=== PATIENT | male | born 1975 | race Caucasian/White ===

== ENCOUNTER 2020-04-25 10:57 | Emergency (ER) | payer BC, SELFPAY ==
[2020-04-25 11:28] VITALS: BP 198/117; PULSE 126; RESP 16; TEMP 36.9; O2SAT 97
--- NOTE | 2020-04-25 14:31 | CT_ITS ---
EXAMINATION: CT ABDOMEN AND PELVIS WITH CONTRAST CLINICAL INFORMATION: Left lower and right lower quadrant pain COMPARISON: None TECHNIQUE: Multidetector volumetric images were obtained from the superior aspect of the liver through the pubic symphysis following administration 85 mL of Omnipaque 350 intravenous contrast. Sagittal and coronal reformatted images were obtained on the technologist's workstation. Oral contrast: No This CT examination was performed using dose optimization techniques as appropriate, variously including the following: *Automated exposure control *Adjustment of mA and/or kV according to patient size (this includes techniques or standardized protocols for targeted exams where dose is matched to indication/reason for exam; i.e. extremities or head) *Use of iterative reconstruction technique DLP: 567 mGy-cm FINDINGS: LUNG BASES: The visualized lung bases are unremarkable. LIVER, GALLBLADDER, AND BILIARY TREE: Hepatomegaly with changes of severe hepatic steatosis. No discrete lesion. The gallbladder is unremarkable with no evidence of radiopaque gallstones, gallbladder wall thickening, or obvious pericholecystic inflammatory changes. PANCREAS: The pancreatic head is enlarged with peripancreatic inflammatory changes suspicious for pancreatitis. No discrete lesion or pancreatic duct dilatation. No choledocholithiasis. No fluid collection. Stranding extends into the right lateral conal fascia and right paracolic gutter. SPLEEN: Unremarkable. ADRENAL GLANDS: Unremarkable. KIDNEYS AND URETERS: The kidneys are normal in size, shape, and attenuation. No hydronephrosis, hydroureter, or calculi seen. No perinephric stranding. Large left upper pole unilocular simple renal cortical cysts. BLADDER: Unremarkable. GASTROINTESTINAL TRACT: Diverticulosis without acute inflammatory changes. Small hiatus hernia. ABDOMINAL WALL: No significant hernia is appreciated. LYMPH NODES: Normal. VASCULAR: Unremarkable. PELVIC VISCERA: Unremarkable. OSSEOUS STRUCTURES: Unremarkable. CT/CT abdomen pelvis w con IMPRESSION: Changes of acute pancreatitis without complication as above. Hepatomegaly changes of severe hepatic steatosis. No fluid collection. No choledocholithiasis.
--- NOTE | 2020-04-25 14:33 | ED.ABDPAIN ---
HPI - Abdominal Pain General Chief Complaint: Abdominal Pain Stated Complaint: belly pain Time Seen by Provider: 04/25/20 14:26 Source: patient Mode of arrival: ambulatory History of Present Illness HPI narrative: 44-year-old male, smoker, with no other significant past medical history presenting to ED complaining of diffuse nonradiating abdominal pain beginning around 3:00 a.m. Admits symptoms improved and now worsened since ED arrival with associated nausea and 1 episode of emesis. Denies fever, chills, diarrhea/constipation, dysuria/hematuria, exposure to COVID-19 MD elicited complaint: abdominal pain Related Data Previous Rx's Medication Instructions Recorded cefuroxime axetil 500 mg PO BID 7 Days #14 tab 04/25/20 hydrocodone-acetaminophen [Meta] 1 tab PO Q6H PRN 3 Days #9 tab 04/25/20 Allergies Allergy/AdvReac Type Severity Reaction Status Date / Time No Known Allergies Allergy Verified 04/25/20 11:26 Review of Systems Review of Systems Constitutional: No Weight loss, No Fever, No Chills Cardiovascular: No Chest Pain, No SOB Respiratory: No Cough, No Sputum, No Dyspnea Gastrointestinal: + Nausea, + Vomiting, No Diarrhea, No Constipation, + Abdominal pain Genitourinary: No Dysuria, No Urinary Frequency, No Hematuria, No Flank Pain, No Hesitancy Musculoskeletal: No joint pain, No Myalgias, No Joint Swelling Skin: No Skin Lesions, No rash Yes all other systems are reviewed and are negative Physical Exam Vital Signs: Vital Signs: Last Vital Signs Temp 97.8 F 04/25/20 18:08 Pulse 109 H 04/25/20 18:08 Resp 20 04/25/20 18:08 BP 186/110 H 04/25/20 18:08 Pulse Ox 98 04/25/20 18:08 Body Mass Index 30.0 Const: General: cooperative and healthy appearing Orientation/consciousness: patient oriented x3 Limitations: no limitations HENMT: Head: Yes normal to inspection Ears: hearing grossly normal bilaterally General nose exam: Normal external nose present Face and sinus: Yes normal facial exam Eyes: General: appearance normal, both eyes and all related structures EOM: EOMs intact bilaterally Neck: Neck: Yes normal visual inspection and Yes no meningeal signs Resp: Effort & Inspection: normal respiratory effort Auscultation: clear to auscultation bilaterally, no rales, no rhonchi and no wheezes Cardio: Rate: regular rate Heart sounds: S1 normal heart sound present and S2 normal heart sound present GI: Inspection: Yes normal to inspection Palpation (GI): Soft to palpation, Tenderness to palpation present (GI) in the epigastrum, in the LLQ, in the RLQ and in the LUQ, no guarding and not rigid : General: Yes no CVA tenderness Back/Spine/Pelvis: Back: no CVA tenderness Skin: Rashes: no rashes Wounds: no wounds Neuro: General: patient oriented x3 and no meningeal signs Gait exam (Neuro): Normal gait present Extrem: General: Yes normal to inspection Course Course Course Narrative: 1700- WBC count 11.3, bilirubin's, AST/ALT, and alk-phos all elevated lipase 159 CT showing changes of acute pancreatitis without complication. Hepatomegaly changes of severe hepatic steatosis. No fluid collection. No choledocholithiasis 1840-upon further questioning patient does admit to daily EtOH use, admits to drinking at least 2 drinks daily. On exam nontoxic appearing, reports only mild pain at present, abdomen soft with mild epigastric ttp, no rebound or guarding. Gave patient option of admission vs DC home with antibiotics/pain control and close follow-up, with shared decision making patient would like to go home, he verbalized understanding worrisome signs and symptoms/return precautions & feels safe for discharge Lab abnormalities likely from EtOH abuse, and not sepsis. VS abnormalities due to anxiety/white coat syndrome, patient does not meet severe sepsis criteria UA nitrite positive> will initiate Ceftin to also cover pancreatitis, and due to patients QTc 2153--lactic negative at 1.7 MDM - Abdominal Pain MDM Narrative Medical decision making narrative: 44-year-old male, smoker, with no other significant past medical history presenting to ED complaining of diffuse nonradiating abdominal pain beginning around 3:00 a.m. On exam hypertensive/tachycardic, nervous, abdomen soft diffusely tender, no rebound or guarding, no CVAT. Concern for pancreatitis vs cholecystitis/liver disease vs diverticulitis or appendicitis. Lower concern for UTI/renal stone. Low concern for severe sepsis, vital sign abnormalities likely due to patient's anxiety/nerves Plan: Labs, UA, CTAP, IVF, symptomatic therapy/reassess Lab Data Result diagrams: 04/25/20 16:08 04/25/20 16:08 Labs: Lab Results 04/25/20 04/25/20 04/25/20 Range/Units 16:08 16:08 16:08 WBC 11.3 H (4.8-10.8) X10*3/uL RBC 4.28 L (4.60-5.80) X10*6/uL Hgb 14.6 (14.0-18.0) g/dl Hct 42.2 (42-52) % MCV 98.6 H (80-98) fL MCH 34.1 H (27.0-33.0) pg MCHC 34.6 (31.0-36.0) g/dl RDW 13.3 (11.0-16.0) % Plt Count 175 (160-400) X10*3/uL MPV 10.7 (9.4-12.4) fL Immature Gran % (Auto) 0.4 (0.0-0.4) % Neut % (Auto) 81.3 H (45-73) % Lymph % (Auto) 12.0 L (20-40) % [place] % (Auto) 5.8 (2-11) % Eos % (Auto) 0.3 (0-4) % Baso % (Auto) 0.2 (0-2) % Lymph # (Auto) 1.4 (1.2-4.9) X10*3/uL [place] # (Auto) 0.7 (0.1-1.2) X10*3/uL Eos # (Auto) 0.0 (0.0-0.4) X10*3/uL Baso # (Auto) 0.0 (0.0-0.2) X10*3/uL Abs Immat Gran (auto) 0.05 H (0.00-0.03) X10*3/uL Absolute Neuts (auto) 9.2 H (2.0-8.3) X10*3/uL Absolute Nucleated RBC 0.000 (0.0-0.012) X10*3/uL Nucleated RBC % (auto) 0.0 (0.0-0.2) /100WBC Hold Blue Top SEE NOTE Sodium 136 (135-145) mmol/L Potassium 3.9 (3.3-5.1) mmol/l Chloride 96 (96-108) mmol/L Carbon Dioxide 27 (22-29) mmol/L Anion Gap 17 (12-20) BUN 11 (9-16) mg/dL Creatinine 0.73 (0.5-1.4) mg/dL Estim Creat Clear Calc 125.9 Estimated GFR > 60 Random Glucose 136 H (60-115) mg/dL Lactic Acid (0.5-2.0) mmol/L Calcium 7.8 L (8.4-10.2) mg/dL Magnesium (1.6-2.6) mg/dL Total Bilirubin 2.5 H (0.0-1.0) mg/dL Direct Bilirubin 1.5 H (0.0-0.5) mg/dL AST 232 H (5-37) U/L ALT 154 H (0-40) U/L Alkaline Phosphatase 225 H (39-117) U/L Total Protein 6.2 L (6.5-8.0) g/dL Albumin 3.1 L (3.5-5.0) g/dL Lipase (8-78) U/L Urine Color Urine Appearance Urine pH (5.0-8.0) Ur Specific [place] (1.005-1.025) Urine Protein (NEG-TRACE) MG/DL Urine Glucose (UA) (NEG) MG/DL Urine Ketones (NEG) MG/DL Urine Blood (NEG) Urine Nitrite (NEG) Ur Leukocyte Esterase (NEG) Urine RBC (0) /HPF Urine WBC (0-4) /HPF Ur Squamous Epith Cells /LPF Urine Bacteria /LPF Urine Mucus /LPF 04/25/20 04/25/20 04/25/20 Range/Units 16:08 17:11 19:22 WBC (4.8-10.8) X10*3/uL RBC (4.60-5.80) X10*6/uL Hgb (14.0-18.0) g/dl Hct (42-52) % MCV (80-98) fL MCH (27.0-33.0) pg MCHC (31.0-36.0) g/dl RDW (11.0-16.0) % Plt Count (160-400) X10*3/uL MPV (9.4-12.4) fL Immature Gran % (Auto) (0.0-0.4) % Neut % (Auto) (45-73) % Lymph % (Auto) (20-40) % [place] % (Auto) (2-11) % Eos % (Auto) (0-4) % Baso % (Auto) (0-2) % Lymph # (Auto) (1.2-4.9) X10*3/uL [place] # (Auto) (0.1-1.2) X10*3/uL Eos # (Auto) (0.0-0.4) X10*3/uL Baso # (Auto) (0.0-0.2) X10*3/uL Abs Immat Gran (auto) (0.00-0.03) X10*3/uL Absolute Neuts (auto) (2.0-8.3) X10*3/uL Absolute Nucleated RBC (0.0-0.012) X10*3/uL Nucleated RBC % (auto) (0.0-0.2) /100WBC Hold Blue Top Sodium (135-145) mmol/L Potassium (3.3-5.1) mmol/l Chloride (96-108) mmol/L Carbon Dioxide (22-29) mmol/L Anion Gap (12-20) BUN (9-16) mg/dL Creatinine (0.5-1.4) mg/dL Estim Creat Clear Calc Estimated GFR Random Glucose (60-115) mg/dL Lactic Acid 1.7 (0.5-2.0) mmol/L Calcium (8.4-10.2) mg/dL Magnesium 1.6 (1.6-2.6) mg/dL Total Bilirubin (0.0-1.0) mg/dL Direct Bilirubin (0.0-0.5) mg/dL AST (5-37) U/L ALT (0-40) U/L Alkaline Phosphatase (39-117) U/L Total Protein (6.5-8.0) g/dL Albumin (3.5-5.0) g/dL Lipase 159 H (8-78) U/L Urine Color [place] Urine Appearance HAZY Urine pH 6.5 (5.0-8.0) Ur Specific [place] >= 1.030 H (1.005-1.025) Urine Protein 1+ H (NEG-TRACE) MG/DL Urine Glucose (UA) NEG (NEG) MG/DL Urine Ketones 5 (NEG) MG/DL Urine Blood NEG (NEG) Urine Nitrite POS H (NEG) Ur Leukocyte Esterase NEG (NEG) Urine RBC 1-4 (0) /HPF Urine WBC 1-4 (0-4) /HPF Ur Squamous Epith Cells 1+ /LPF Urine Bacteria 1+ /LPF Urine Mucus 3+ /LPF Discharge Plan Discharge Clinical Impression: Acute UTI Acute pancreatitis Qualifiers: Pancreatitis type: alcohol induced Acute pancreatitis complication: no infection or necrosis Qualified Code(s): K85.20 - Alcohol induced acute pancreatitis without necrosis or infection Patient Disposition: Home, Self-Care Instructions: Pancreatitis (ED) Additional Instructions: YOU HAVE ACUTE PANCREATITIS CEFTIN AN ANTIBIOTIC, TAKE PRESCRIBED YOU NEED TO STAY HYDRATED AT HOME, PRACTICE CLEAR LIQUID DIET FOR THE NEXT 3 DAYS IT IS CRUCIAL THAT YOUR STAYING HYDRATED TAKE TYLENOL MOTRIN FOR PAIN, IN ADDITION NORCO WAS AN OPIATE PAIN MEDICATION WHEN PAIN GETS TOO SEVERE, TAKE FOR THE NEXT 3 DAYS YOU TO FOLLOW-UP WITH THE GI DOCTOR IF HER SYMPTOMS PERSIST OR WORSEN, PAIN BECOMES UNBEARABLE, YOU ARE UNABLE TO EAT OR DRINK, YOURE SPIKING FEVERS RETURN TO THE ED IMMEDIATELY Prescriptions: New hydrocodone-acetaminophen [Meta] 5-325 mg tablet 1 tab PO Q6H PRN (Reason: pain) 3 Days Qty: 9 RF: 0 cefuroxime axetil 500 mg tablet 500 mg PO BID 7 Days Qty: 14 RF: 0 Referrals: Kim Gotti MD [Physician] - 3 days [facility] Past Medical History Attestation statement: The following information was validated with the patient. Medical History (Updated 04/25/20 @ 18:47 by JOSE ANTONIO Lai) No known health problems Social History Social History Alcohol intake: never Smoking Status: Unknown if ever smoked Use of substances other than those prescribed or required for medical reasons: No Advance Directives: No Advance Directives Information Provided: No
[2020-04-25 16:01] VITALS: BP 181/100; PULSE 112; RESP 16; TEMP 36.9; O2SAT 98
[2020-04-25] MEDS: Ketorolac Tromethamine 15 MG/ML VIAL IVPUSH (16:09)
[2020-04-25] MEDS: 0.9 % Sodium Chloride 1,000 ML 999 ML IVCONT ×2 (16:09→18:22)
[2020-04-25] MEDS: ondansetron HCL 4 MG/2 ML VIAL IVPUSH (16:10)
[2020-04-25 16:16] LABS: MANUAL DIFF FLAG NO
[2020-04-25 16:30] LABS: Basophils Percent Auto 0.2 % (0-2); Eosinophils Percent Auto 0.3 % (0-4); Hematocrit 42.2 % (42-52); Hemoglobin 14.6 g/dl (14.0-18.0); Imm Gran Abs Auto 0.05 X10*3/uL (0.00-0.03); Imm Gran Pct Auto 0.4 % (0.0-0.4); Lymphocytes Absolute Auto 1.4 X10*3/uL (1.2-4.9); Mean Corpuscular HGB Conc 34.6 g/dl (31.0-36.0); Mean Corpuscular Hemoglobin 34.1 pg (27.0-33.0); Mean Corpuscular Volume 98.6 fL (80-98); Mean Platelet Volume 10.7 fL (9.4-12.4); Monocytes Absolute Auto 0.7 X10*3/uL (0.1-1.2); Monocytes Percent Auto 5.8 % (2-11); Neutrophils Absolute Auto 9.2 X10*3/uL (2.0-8.3); Neutrophils Percent Auto 81.3 % (45-73); Platelet Count 175 X10*3/uL (160-400); Red Blood Count 4.28 X10*6/uL (4.60-5.80); Red Cell Distribution Width 13.3 % (11.0-16.0); White Blood Count 11.3 X10*3/uL (4.8-10.8)
[2020-04-25 16:44] LABS: Alanine Aminotransferase 154 U/L (0-40); Albumin Level 3.1 g/dL (3.5-5.0); Alkaline Phosphatase 225 U/L (39-117); Anion Gap 17 (12-20); Aspartate Amino Transferase 232 U/L (5-37); Bilirubin Direct 1.5 mg/dL (0.0-0.5); Bilirubin Total 2.5 mg/dL (0.0-1.0); Blood Urea Nitrogen 11 mg/dL (9-16); Calcium 7.8 mg/dL (8.4-10.2); Carbon Dioxide 27 mmol/L (22-29); Chloride 96 mmol/L (96-108); Creatinine Clr Calc Pharmacy 125.9; Estimated Glomerular Filt Rate > 60; Glucose Random 136 mg/dL (60-115); Lipase 159 U/L (8-78); Magnesium 1.6 mg/dL (1.6-2.6); Potassium 3.9 mmol/l (3.3-5.1); Sodium 136 mmol/L (135-145); Total Protein 6.2 g/dL (6.5-8.0)
[2020-04-25 17:29] LABS: Glucose Urine UA NEG (NEG); Leukocyte Esterase Urine NEG (NEG); Nitrite Urine POS (NEG); PH 6.5 (5.0-8.0); Specific Gravity - Urine >= 1.030 (1.005-1.025); Urine Blood NEG (NEG); Urine Ketones 5 MG/DL (NEG); Urine Protein 1+ MG/DL (NEG-TRACE)
[2020-04-25 17:33] LABS: Appearance Urine HAZY; Color Urine AMBER
[2020-04-25 17:37] LABS: Bacteria Urine 1+ /LPF; Mucus Urine 3+ /LPF; Squamous Epithelial Cell Urine 1+ /LPF
[2020-04-25] MEDS: iohexoL 350 MG/ML 100 ML INFUS..BTL IV (18:07)
[2020-04-25 18:08] VITALS: BP 186/110; PULSE 109; RESP 20; TEMP 36.6; O2SAT 98
--- NOTE | 2020-04-25 18:54 | ECG_ITS ---
Test Reason : ABD PAIN Blood Pressure : / mmHG Vent. Rate : 109 BPM Atrial Rate : 109 BPM P-R Int : 148 ms QRS Dur : 112 ms QT Int : 356 ms P-R-T Axes : 055 -02 072 degrees QTc Int : 479 ms Sinus tachycardia Otherwise normal ECG No previous ECGs available Referred By: Diana Guajardo Electronically Signed By:Clinton Fernandez
[2020-04-25 19:51] LABS: Lactic Acid 1.7 mmol/L (0.5-2.0)
== END 2020-04-25 20:13 | disposition home or self-care (01) ==
PROVIDERS: Physician Assistant; Emergency Provider Internal Medicine
DX: K85.20 Alcohol induced acute pancreatitis without necrosis or infection (principal); N39.0 Urinary tract infection, site not specified; Z79.899 Other long term (current) drug therapy
CPT/HCPCS: 36415; 74177; 80048; 80076; 81001; 83605; 83690; 83735; 85025; 87040; 87086; 93005; 96361; 96374; 96375; 99284; J1885; J2405; Q9967

== ENCOUNTER 2021-10-25 11:29 | Inpatient (IN) | payer BC, SELFPAY ==
--- NOTE | ~2021-10-25 | XR_ITS ---
EXAMINATION: XR CHEST CLINICAL INFORMATION: SOB COMPARISON: None TECHNIQUE: Frontal view of the chest was obtained. FINDINGS: The lungs are well-expanded with patchy haziness in right lower lobe suggestive of infiltrate or atelectasis. Rest of the lungs are well-expanded and clear. Heart size enlarged. Pulmonary vascularity is prominent without congestion. No gross bony abnormality seen. XR/XR chest 1V IMPRESSION: Suspect right lower lobe infiltrate or artifact. Rest of lungs are clear Moderate cardiomegaly.
--- NOTE | ~2021-10-25 | CT_ITS ---
EXAMINATION: CT ABDOMEN AND PELVIS WITHOUT CONTRAST CLINICAL INFORMATION: Severe abdominal distention. COMPARISON: CT abdomen and pelvis with contrast 04/25/2020 TECHNIQUE: Multidetector volumetric imaging was performed from the superior aspect of the liver through the pubic symphysis. No oral or intravenous contrast. Sagittal and coronal reformatted images were obtained on the technologist's workstation. Preliminary interpretation provided at time of exam during PACS downtime. This CT examination was performed using dose optimization techniques as appropriate, variously including the following: *Automated exposure control *Adjustment of mA and/or kV according to patient size (this includes techniques or standardized protocols for targeted exams where dose is matched to indication/reason for exam; i.e. extremities or head) *Use of iterative reconstruction technique DLP: 1136 mGy-cm FINDINGS: Motion: There is respiratory motion artifact greater in the upper abdomen with inherent limitations. LUNG BASES: The visualized lung bases are unremarkable. LIVER, GALLBLADDER, AND BILIARY TREE: Liver is within limits of normal size and smooth in contour and homogeneous. No visible hepatic parenchymal lesion. No intrahepatic biliary ductal dilatation. Gallbladder is normal in size. No visible calculi. No persistent cholecystic fluid or focal inflammatory changes. No visible common duct calculus. PANCREAS: Unremarkable. No pancreatic ductal distention or peripancreatic inflammatory changes. SPLEEN: Unremarkable. ADRENAL GLANDS: Grossly unremarkable. Motion artifact grades assessment. KIDNEYS AND URETERS: No hydronephrosis, hydroureter, or perinephric stranding. Vascular calcification left interpolar region similar to prior CT. There is blurring/ghosting around the upper poles from the respiratory motion. Cyst upper pole left kidney again seen approximately 3.3 cm in size. No additional imaging follow-up required. BLADDER: Unremarkable. GASTROINTESTINAL TRACT: No bowel obstruction. No bowel dilatation or focal inflammatory change in bowel. Some trace ascites present. No focal loculated fluid collection. No definite free air. Evaluation limited by lack of oral and intestinal contrast and motion artifact. ABDOMINAL WALL: Generalized anasarca subcutaneous soft tissues. Small fat-containing left inguinal hernia similar to prior exam. LYMPH NODES: No adenopathy. VASCULAR: Unremarkable on noncontrast exam. PELVIC VISCERA: Unremarkable. OSSEOUS STRUCTURES: Unremarkable. CT/CT abdomen pelvis wo con IMPRESSION: -Study limitations (respiratory motion artifact, no oral or IV contrast). Suggest follow-up exam if symptoms persist. -Generalized anasarca. Mild ascites. No bowel obstruction or focal bowel wall thickening. -No biliary ductal dilatation or hydronephrosis. Unremarkable pancreas.
[2021-10-25 11:47] VITALS: BP 228/134; PULSE 122; RESP 20; TEMP 36.9; O2SAT 97; BMI 52.6
--- NOTE | 2021-10-25 11:51 | ECG_ITS ---
Test Reason : DYSPNEA Blood Pressure : / mmHG Vent. Rate : 123 BPM Atrial Rate : 123 BPM P-R Int : 162 ms QRS Dur : 098 ms QT Int : 298 ms P-R-T Axes : 067 006 074 degrees QTc Int : 426 ms Sinus tachycardia Otherwise normal ECG When compared with ECG of 25-APR-2020 18:59, No significant change was found Referred By: Generic ED Physician Electronically Signed By:Clinton Fernandez
[2021-10-25 12:12] LABS: MANUAL DIFF FLAG NO
[2021-10-25 12:15] LABS: Basophils Absolute Auto 0.1 X10*3/uL (0.0-0.2); Basophils Percent Auto 0.5 % (0-2); Eosinophils Absolute Auto 0.1 X10*3/uL (0.0-0.4); Eosinophils Percent Auto 0.5 % (0-4); Hematocrit 42.5 % (42.0-52.0); Hemoglobin 13.5 g/dl (14.0-18.0); Imm Gran Abs Auto 0.03 X10*3/uL (0.00-0.03); Imm Gran Pct Auto 0.3 % (0.0-0.4); Lymphocytes Absolute Auto 1.8 X10*3/uL (1.2-4.9); Mean Corpuscular HGB Conc 31.8 g/dl (31.0-36.0); Mean Corpuscular Hemoglobin 28.6 pg (27.0-33.0); Monocytes Absolute Auto 0.9 X10*3/uL (0.1-1.2); Monocytes Percent Auto 9.5 % (2-11); Neutrophils Absolute Auto 6.6 x10*3/uL (2.0-8.3); Neutrophils Percent Auto 70.2 % (45-73); Platelet Count 324 X10*3/uL (160-400); Red Blood Count 4.72 X10*6/uL (4.60-5.80); Red Cell Distribution Width 13.9 % (11.0-16.0); White Blood Count 9.5 X10*3/uL (4.8-10.8)
[2021-10-25 12:38] LABS: Anion Gap 13 (12-20); Blood Urea Nitrogen 8 mg/dL (9-16); Calcium 8.8 mg/dL (8.4-10.2); Carbon Dioxide 26 mmol/L (22-29); Chloride 99 mmol/L (96-108); Creatinine Clr Calc Pharmacy 141.6; Estimated Glomerular Filt Rate > 60; Glucose Random 122 mg/dL (60-115); Potassium 4.3 mmol/L (3.3-5.1); Sodium 134 mmol/L (135-145)
[2021-10-25 12:41] LABS: Troponin-I High Sensitivity 16.3 ng/L (<3.5-35.0)
--- NOTE | 2021-10-25 15:00 | ED.GENADULT ---
HPI - General Adult General Chief complaint: General Medical Stated complaint: feet and leg swelling, sob, abd pain Time Seen by Provider: 10/25/21 14:42 Source: patient and family Mode of arrival: ambulatory Limitations: no limitations History of Present Illness HPI narrative: 45 years old male came in for evaluation of weight gain, swelling lower extremities and difficulty breathing. Long history of alcohol abuse drinks every day, noticed over the last month or 2 been gaining weight with severe swelling of both legs and abdomen, patient feels shortness of breath for mostly from distension of the abdomen, patient never diagnosed with heart or kidney or liver disease in the past. No fever or chills. Patient stated that he at least gained 40+ lb Related Data Previous Rx's Medication Instructions Recorded cefuroxime axetil 500 mg tablet 500 mg PO BID 7 days #14 tabs 04/25/20 hydrocodone 5 mg-acetaminophen 325 1 tab PO Q6H PRN pain 3 days #9 04/25/20 mg tablet ([place]) tabs Allergies Allergy/AdvReac Type Severity Reaction Status Date / Time No Known Allergies Allergy Verified 04/25/20 11:26 Review of Systems Review of Systems: All other systems are reviewed and are negative Constitutional: Reports as per HPI and Reports no additional constitutional complaints Eyes: Reports as per HPI and Reports no additional eye complaints Reports system reviewed and no additional complaints, except as documented Cardiovascular: Reports as per HPI and Reports no additional cardiovascular complaints Respiratory: Reports as per HPI and Reports no additional respiratory complaints Gastrointestinal: Reports as per HPI and Reports no additional gastrointestinal complaints Genitourinary: Reports no additional female genitourinary complaints Musculoskeletal: Reports no additional musculoskeletal complaints Skin/Breast: Reports system reviewed and no additional complaints, except as docu Psychiatric: Reports no additional psychiatric complaints Endocrine: Reports no additional endocrine complaints Hematologic/Lymphatic: Reports no additional hematologic/lymphatic complaints Allergic/Immunologic: Reports no additional allergic/immunologic complaints Reports system reviewed and no additional complaints, except as documented and Reports Abnormal speech present [facility] Past Medical History Medical History No known health problems Social History Social History Alcohol intake: current Alcohol intake frequency: 3 or more drinks per day Alcohol type: beer, wine and hard liquor Patient Tobacco Use Status: Former Tobacco user Smoked in Last 30 Days: Yes Use of substances other than those prescribed or required for medical reasons: No Advance Directives: No Advance Directives Information Provided: No Physical Exam ED Vital Signs: Vital Signs - 24 hr 10/25/21 11:47 10/25/21 15:17 Temperature 98.4 F Pulse Rate 122 H 121 H Respiratory Rate 20 26 H Blood Pressure 228/134 H 198/122 H Pulse Oximetry 97 96 Oxygen Delivery Method Room Air Room Air BMI result Body Mass Index 52.6 Vital signs have been reviewed as appeared to be correct. Blood pressure elevated. Heart rate elevated. Respiration rate normal. Temperature normal. Oxygen saturation normal. Appearance: Alert. Oriented X3. No acute distress. Head: Normal external exam. Normocephalic. Atraumatic. No Hansen signs noted. No raccoon eyes noted Eyes: PERRLA. EOMI. Conjunctiva and sclera normal. Eyelids normal. ENT: TM's Normal. Pharynx normal. Uvula midline. Moist mucous membranes. No trismus noted. No drooling noted. No muffled voice noted. Neck: Normal inspection. Neck supple. FROM. No adenopathy. Thyroid Normal. No meningeal signs. No neck mass noted. CVS: Normal heart rate and rhythm. Heart sound normal. No murmurs noted. Pulses normal throughout. Respiratory: No respiratory distress. Painless inspiration. Breath sounds normal. No wheezes/rales/rhonchi noted. Chest nontender. No accessory muscle usage noted or decreased air movement noted. Abdomen: Distended, nontender. Bowel sounds normal in all 4 quadrants. No distention noted. No organomegaly noted. No visible injury noted. Back: No CVA tenderness. Full range of motion noted. Skin: Skin warm and dry. Normal skin color. Normal skin turgor. No rashes/lesions/lacerations noted. Extremities:+3 lower extremity edema. Extremities exhibit normal range of motion. Extremities nontender. Neuro: Oriented X 3. Cranial nerve exam: II-XII are grossly intact No motor deficit. No sensory deficit. Reflexes normal. Course Course Course Narrative: Assessment and plan. 45-year-old male history of alcohol abuse came in with symptoms of SOB, PND, diffuse anasarca. Physical exam/patient's history suggesting alcoholic cardiomyopathy versus alcoholic hepatitis. Patient needs further cardiac workup and diuresis. CT abdomen pelvis showed no severe ascites and no need for paracentesis. Medical Decision Making Medical Records Medical records reviewed: Yes I reviewed the patient's medical records. Lab Data Lab results reviewed: Yes I reviewed the patient's lab results. Result diagrams: 10/25/21 12:06 10/25/21 12:06 Labs: Lab Results 10/25/21 10/25/21 10/25/21 Range/Units 12:06 12:06 12:06 WBC 9.5 (4.8-10.8) X10*3/uL RBC 4.72 (4.60-5.80) X10*6/uL Hgb 13.5 L (14.0-18.0) g/dl Hct 42.5 (42.0-52.0) % MCV 90.0 (80.0-98.0) fL MCH 28.6 (27.0-33.0) pg MCHC 31.8 (31.0-36.0) g/dl RDW 13.9 (11.0-16.0) % Plt Count 324 (160-400) X10*3/uL MPV 10.0 (9.4-12.4) fL Immature Gran % (Auto) 0.3 (0.0-0.4) % Neut % (Auto) 70.2 (45-73) % Lymph % (Auto) 19.0 L (20-40) % [place] % (Auto) 9.5 (2-11) % Eos % (Auto) 0.5 (0-4) % Baso % (Auto) 0.5 (0-2) % Lymph # (Auto) 1.8 (1.2-4.9) X10*3/uL [place] # (Auto) 0.9 (0.1-1.2) X10*3/uL Eos # (Auto) 0.1 (0.0-0.4) X10*3/uL Baso # (Auto) 0.1 (0.0-0.2) X10*3/uL Abs Immat Gran (auto) 0.03 (0.00-0.03) X10*3/uL Absolute Neuts (auto) 6.6 (2.0-8.3) x10*3/uL Absolute Nucleated RBC 0.000 (0.0-0.012) X10*3/uL Nucleated RBC % (auto) 0.0 (0.0-0.2) /100WBC PT (9.9-13.0) SEC INR (0.9-1.1) APTT (24.1-38.0) SEC Sodium 134 L (135-145) mmol/L Potassium 4.3 (3.3-5.1) mmol/L Chloride 99 (96-108) mmol/L Carbon Dioxide 26 (22-29) mmol/L Anion Gap 13 (12-20) BUN 8 L (9-16) mg/dL Creatinine 0.84 (0.5-1.4) mg/dL Estim Creat Clear Calc 141.6 Estimated GFR > 60 Random Glucose 122 H (60-115) mg/dL Calcium 8.8 D (8.4-10.2) mg/dL Total Bilirubin 1.2 H (0.0-1.0) mg/dL Direct Bilirubin 0.7 H (0.0-0.5) mg/dL AST 33 D (5-37) U/L ALT 41 H (0-40) U/L Alkaline Phosphatase 155 H D (39-117) U/L Troponin I High Sens 16.3 (<3.5-35.0) ng/L B-Natriuretic Peptide 1095 H (<100) pg/mL Total Protein 6.8 (6.5-8.0) g/dL Albumin 3.9 D (3.5-5.0) g/dL COVID-19 ([facility]UL) COVID-19 Clin Com 10/25/21 10/25/21 Range/Units 12:06 15:53 WBC (4.8-10.8) X10*3/uL RBC (4.60-5.80) X10*6/uL Hgb (14.0-18.0) g/dl Hct (42.0-52.0) % MCV (80.0-98.0) fL MCH (27.0-33.0) pg MCHC (31.0-36.0) g/dl RDW (11.0-16.0) % Plt Count (160-400) X10*3/uL MPV (9.4-12.4) fL Immature Gran % (Auto) (0.0-0.4) % Neut % (Auto) (45-73) % Lymph % (Auto) (20-40) % [place] % (Auto) (2-11) % Eos % (Auto) (0-4) % Baso % (Auto) (0-2) % Lymph # (Auto) (1.2-4.9) X10*3/uL [place] # (Auto) (0.1-1.2) X10*3/uL Eos # (Auto) (0.0-0.4) X10*3/uL Baso # (Auto) (0.0-0.2) X10*3/uL Abs Immat Gran (auto) (0.00-0.03) X10*3/uL Absolute Neuts (auto) (2.0-8.3) x10*3/uL Absolute Nucleated RBC (0.0-0.012) X10*3/uL Nucleated RBC % (auto) (0.0-0.2) /100WBC PT 13.8 H (9.9-13.0) SEC INR 1.2 H (0.9-1.1) APTT 36.1 (24.1-38.0) SEC Sodium (135-145) mmol/L Potassium (3.3-5.1) mmol/L Chloride (96-108) mmol/L Carbon Dioxide (22-29) mmol/L Anion Gap (12-20) BUN (9-16) mg/dL Creatinine (0.5-1.4) mg/dL Estim Creat Clear Calc Estimated GFR Random Glucose (60-115) mg/dL Calcium (8.4-10.2) mg/dL Total Bilirubin (0.0-1.0) mg/dL Direct Bilirubin (0.0-0.5) mg/dL AST (5-37) U/L ALT (0-40) U/L Alkaline Phosphatase (39-117) U/L Troponin I High Sens (<3.5-35.0) ng/L B-Natriuretic Peptide (<100) pg/mL Total Protein (6.5-8.0) g/dL Albumin (3.5-5.0) g/dL COVID-19 ([facility]UL) Cancelled COVID-19 Clin Com Cancelled Imaging Data Chest x-ray: Attestation: I personally reviewed and interpreted this imaging study as follows: Radiologist's impression: Cardiomegaly right lower lobe infiltrate versus artifact. CT abdomen and pelvis: Attestation: I personally reviewed and interpreted this imaging study as follows: Radiologist's impression: Anasarca/subcu soft tissue swelling/mild ascites/otherwise unremarkable CT abdomen and pelvis. Discharge Plan Discharge Clinical Impression: Anasarca, Alcoholic cardiomyopathy, Alcoholic liver disease Patient Disposition: Admitted As Inpatient
[2021-10-25 15:16] LABS: Alanine Aminotransferase 41 U/L (0-40); Albumin Level 3.9 g/dL (3.5-5.0); Alkaline Phosphatase 155 U/L (39-117); Aspartate Amino Transferase 33 U/L (5-37); Bilirubin Direct 0.7 mg/dL (0.0-0.5); Bilirubin Total 1.2 mg/dL (0.0-1.0); Total Protein 6.8 g/dL (6.5-8.0)
[2021-10-25 15:17] VITALS: BP 198/122; PULSE 121; RESP 26; O2SAT 96
[2021-10-25 15:20] LABS: B Type Natriuretic Peptide 1095 pg/mL (<100)
[2021-10-25 16:14] LABS: INTERNATIONAL NORM RATIO 1.2 (0.9-1.1); Prothrombin Time 13.8 SEC (9.9-13.0)
[2021-10-25 16:16] LABS: Partial Thromboplastin Time 36.1 SEC (24.1-38.0)
[2021-10-25] MEDS: Furosemide 40 MG/4 ML VIAL IVPUSH (17:32)
[2021-10-25 17:33] VITALS: BP 193/124; PULSE 115; RESP 26; O2SAT 97
[2021-10-25 17:48] LABS: Appearance Urine CLEAR; Color Urine YELLOW; Glucose Urine UA NEG (NEG); Leukocyte Esterase Urine NEG (NEG); Nitrite Urine NEG (NEG); Specific Gravity - Urine 1.015 (1.005-1.025); Urine Blood TRACE (NEG); Urine Ketones NEG (NEG); Urine Protein 2+ MG/DL (NEG-TRACE)
[2021-10-25 17:51] LABS: Troponin-I High Sensitivity 20.6 ng/L (<3.5-35.0)
--- NOTE | 2021-10-25 17:55 | PM.IMHP ---
History of Present Illness Date of Service: 10/25/21 Chief Complaint: swelling + dyspnea 45yo M with no diagnosed chronic conditions and no PCP who presents to the ED with approximately 4 wk of worsening swelling of his abdomen and legs, progressing to the point where he is becoming short of breath with activity and with laying flat. He estimates his weight is up 40 lb. No chest pain. No cough. No fever. He drinks 6 servings of liquor daily and cannot recall a day in the last year when he did not drink. Last drink was 10-11pm last night. In the ED, he was noted to have generalized anasarca and was hypertensive and tachycardic, as high as 228/134 and 122; currently 193/124 and 115. CXR showed cardiomegaly and CT of the abdomen and pelvis showed anasarca, subcutaneous soft tissue swelling, and a small amount of ascites. BNP 1095. He was given 40 mg of IV furosemide and started on phenobarbital taper. He takes no medications. He does not smoke or use other substances. Review of Systems Review of Systems: Yes all other systems are reviewed and are negative [facility] Medical History No known health problems Social History Alcohol intake: current Alcohol intake frequency: 3 or more drinks per day Alcohol type: beer, wine and hard liquor Patient Tobacco Use Status: Former Tobacco user Smoked in Last 30 Days: Yes Use of substances other than those prescribed or required for medical reasons: No Advance Directives: No Advance Directives Information Provided: No Meds Allergies Allergy/AdvReac Type Severity Reaction Status Date / Time No Known Allergies Allergy Verified 04/25/20 11:26 Active Medications: Current Medications Furosemide (Furosemide 40 Mg/4 Ml Vial) 40 mg IVPUSH BID@0900,1800 [facility]; Protocol Last Admin: 10/25/21 17:33 Dose: Not Given Multivitamins/Vitamin C (Multivitamin Tablet) 1 tab PO DAILY [facility] Pharmacy Consult (Consult Rx Perform Med Rec) 1 each MISCELLANE STAT STA Stop: 10/25/21 17:22 Pharmacy Consult (Consult Rx Etoh Phenob Po Dose) 1 each MISCELLANE ONCE PRN; Protocol PRN Reason: Consult order Thiamine HCl (Thiamine Hcl 100 Mg Tablet) 100 mg PO DAILY [facility] Physical Exam Vital Signs and Narrative: Vital Signs: Last Vital Signs Temp 98.4 F 10/25/21 11:47 Pulse 115 H 10/25/21 17:33 Resp 26 H 10/25/21 17:33 BP 193/124 H 10/25/21 17:33 Pulse Ox 97 10/25/21 17:33 O2 Del Method 10/25/21 17:33 BMI result Body Mass Index 52.6 Gen: mildly tremulous, NAD HEENT: sclera anicteric, moist mucus membranes Neck: supple Lungs: diminished bilaterally Heart: tachycardic, regular, no murmurs Abd: soft, non-tender, non-distended, obese Ext: 4+ LE edema bilaterally Skin: warm/well-perfused Neuro: alert and oriented x3, no focal findings Psych: appropriate affect Results Labs CBC and Chem 7: 10/25/21 12:06 10/25/21 12:06 Labs: Laboratory Results - last 24 hr 10/25/21 10/25/21 10/25/21 12:06 12:06 12:06 MCV 90.0 MCH 28.6 MCHC 31.8 RDW 13.9 Plt Count 324 MPV 10.0 Immature Gran % (Auto) 0.3 Neut % (Auto) 70.2 Lymph % (Auto) 19.0 L [place] % (Auto) 9.5 Eos % (Auto) 0.5 Baso % (Auto) 0.5 Lymph # (Auto) 1.8 [place] # (Auto) 0.9 Eos # (Auto) 0.1 Baso # (Auto) 0.1 Abs Immat Gran (auto) 0.03 Absolute Neuts (auto) 6.6 Absolute Nucleated RBC 0.000 Nucleated RBC % (auto) 0.0 PT INR APTT Anion Gap 13 Estim Creat Clear Calc 141.6 Estimated GFR > 60 Random Glucose 122 H Calcium 8.8 D Total Bilirubin 1.2 H Direct Bilirubin 0.7 H AST 33 D ALT 41 H Alkaline Phosphatase 155 H D Troponin I High Sens 16.3 B-Natriuretic Peptide 1095 H Total Protein 6.8 Albumin 3.9 D Urine Color Urine Appearance Urine pH Ur Specific [place] Urine Protein Urine Glucose (UA) Urine Ketones Urine Blood Urine Nitrite Ur Leukocyte Esterase COVID-19 ([facility]) COVID-19 Clin Com 06/10/25/21 10/25/21 12:06 15:53 17:27 MCV MCH MCHC RDW Plt Count MPV Immature Gran % (Auto) Neut % (Auto) Lymph % (Auto) [place] % (Auto) Eos % (Auto) Baso % (Auto) Lymph # (Auto) [place] # (Auto) Eos # (Auto) Baso # (Auto) Abs Immat Gran (auto) Absolute Neuts (auto) Absolute Nucleated RBC Nucleated RBC % (auto) PT 13.8 H INR 1.2 H APTT 36.1 Anion Gap Estim Creat Clear Calc Estimated GFR Random Glucose Calcium Total Bilirubin Direct Bilirubin AST ALT Alkaline Phosphatase Troponin I High Sens 20.6 B-Natriuretic Peptide Total Protein Albumin Urine Color Urine Appearance Urine pH Ur Specific [place] Urine Protein Urine Glucose (UA) Urine Ketones Urine Blood Urine Nitrite Ur Leukocyte Esterase COVID-19 ([facility]) Cancelled COVID-19 Clin Com Cancelled 10/25/21 17:40 MCV MCH MCHC RDW Plt Count MPV Immature Gran % (Auto) Neut % (Auto) Lymph % (Auto) [place] % (Auto) Eos % (Auto) Baso % (Auto) Lymph # (Auto) [place] # (Auto) Eos # (Auto) Baso # (Auto) Abs Immat Gran (auto) Absolute Neuts (auto) Absolute Nucleated RBC Nucleated RBC % (auto) PT INR APTT Anion Gap Estim Creat Clear Calc Estimated GFR Random Glucose Calcium Total Bilirubin Direct Bilirubin AST ALT Alkaline Phosphatase Troponin I High Sens B-Natriuretic Peptide Total Protein Albumin Urine Color YELLOW Urine Appearance CLEAR Urine pH 6.0 Ur Specific [place] 1.015 Urine Protein 2+ H Urine Glucose (UA) NEG Urine Ketones NEG Urine Blood TRACE Urine Nitrite NEG Ur Leukocyte Esterase NEG COVID-19 ([facility]) COVID-19 Clin Com Assessment and Plan (1) Fluid overload: Status: Acute Plan 45yo M with history of daily, heavy alcohol use presenting with 4 wk of weight gain, leg and abdominal swelling, and progressive exertional dyspnea and orthopnea. He is markedly fluid-overloaded on exam. 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 # volume overload - [place] [facility] [place] + Cardiology consultation, give IV furosemide, monitor I+O/weight/BNP/BMP/Mg, neurohormonal modulation pending TTE results # EtOH withdrawal - suspect some component of his hypertension and tachycardia are due to EtOH withdrawal; will start phenobarbital taper, consult Addiction Medicine + CARE Team, give thiamine + multivitamin # VTE ppx - LMWH # code - full Quality Stroke Does the patient have a stroke diagnosis?: No VTE Prior VTE?: No VTE Risk Level:: Medical - moderate - high VTE Device Contraindication: N/A - Device Ordered VTE Drug Contraindication: N/A - Med Ordered
[2021-10-25 17:58] LABS: Bacteria Urine TRACE /LPF; RBC Urine 0-2 /HPF (0); WBC Urine 0 /HPF (0-4)
--- NOTE | 2021-10-25 18:05 | PHA.MEDREC ---
Pharmacy Consult ? Medication Reconciliation Pharmacy has completed the medication reconciliation.
[2021-10-25 18:16] LABS: COVID-19 Test Negative (Negative); IDNOW Serial# 16C4AD1C
[2021-10-25] MEDS: Enoxaparin Sodium 40 MG/0.4 ML SYRINGE SUBCUT (18:52)
[2021-10-25 18:53] VITALS: BP 163/101
[2021-10-25] MEDS: PHENobarbitaL 200 MG, PHENobarbitaL 30 MG 230 MG PO (19:55)
--- NOTE | 2021-10-25 22:10 | MHC.CM.PN ---
CM met with admitted patient with bed assignment pending. A&Ox4. Declines HCP at this time. No PCP. States he has an appointment with a new PCP at [place] in December. Vax/boosted/Moderna. Lives with girlfriend, Kusum Salguero ([phone]). Employed. No DME/services. D/C plan is home without services. Girlfriend will provide transportation at discharge. CM to follow for d/c needs.
[2021-10-26] VITALS (7 sets, daily range): BP systolic 161–184; BP diastolic 96–117; PULSE 103–111; RESP 19–27; TEMP 36.5–36.8; O2SAT 94–97
[2021-10-26 04:57] LABS: Anion Gap 12 (12-20); Blood Urea Nitrogen 9 mg/dL (9-16); Carbon Dioxide 30 mmol/L (22-29); Chloride 100 mmol/L (96-108); Creatinine Clr Calc Pharmacy 138.3; Estimated Glomerular Filt Rate > 60; Glucose Random 117 mg/dL (60-115); Magnesium 2.1 mg/dL (1.6-2.6); Potassium 4.1 mmol/L (3.3-5.1); Sodium 138 mmol/L (135-145)
[2021-10-26 05:04] LABS: B Type Natriuretic Peptide 1921 pg/mL (<100)
--- NOTE | 2021-10-26 06:39 | PC.NURSE ---
Patient's blood pressures have been high throughout the night. MD aware and hydralazine prescribed
--- NOTE | 2021-10-26 07:00 | CA_ITS ---
Transthoracic Echocardiogram Patient (Last, First, Middle): Antoni Salguero I Gender: Male Date of : 1975 Age: 45 Procedure Date: 10/26/2021 Procedure Type: Transthoracic Echocardiogram Location: ER Height: 162.56 cm Weight: 138.8 kg BSA: 2.34 m2 Heart Rate: bpm BP: 163 / 110 mmHg Cutter Head Sharpener: GIOVANNI Azul MD: Sage Fontenot MD First Helper: Rick Vela MD Symptoms: HF Study Quality: Technically Difficult/Contrast ECG Rhythm: Sinus tachycardia Conclusions: - 1. Technically limited study despite use of contrast agent 2. LV is mildly dilated with mild LVH with moderately reduced LV systolic function with LVEF of 35-40% 3. Limited cardiac valvular Dopplers 4. Mildly to moderately elevated right ventricular systolic pressure with significantly elevated right atrial pressures Findings Procedure Information Contrast agent, definity, is being given per protocol without apparent complications. Left Ventricle Mildly increased left ventricular cavity size. There is mildly increased left ventricular wall thickness. The left ventricular systolic function is moderately decreased. The visually estimated ejection fraction is between 35 40%. There is moderate global hypokinesis. Spectral Doppler is indicative of an impaired relaxation filling pattern. Right Ventricle The right ventricle was not well visualized. Atria The left atrium is mildly dilated. Interatrial shunt cannot be excluded. Aortic Valve The aortic valve was not well visualized. There is no aortic valve stenosis. There is no aortic valve regurgitation. Mitral Valve The mitral valve was not well visualized. There is no mitral valve stenosis. Pulmonic Valve The pulmonic valve was not well visualized. Tricuspid Valve The tricuspid valve was not well visualized. There is trace tricuspid valve regurgitation. Significantly elevated right atrial pressure. Mild to moderate pulmonary hypertension is present. Great Vessels The aorta was not well visualized. The pulmonary artery was not well visualized. Venous The inferior vena cava is moderately dilated and does not collapse with inspiration. Pericardium/Pleural The pericardium was not well visualized. Prior Study Comparison No prior study available for comparison. Measurements 2D Linear Measurements IVSd: 1.27 0.6-0.9/0.6-1.0 cm LVIDd: 5.61 3.9-5.3/4.2-5.9 cm LVIDd Index: 2.40 2.4-3.2/2.2-3.1 cm/m2 LVIDs: 4.54 2.0-3.6 cm LVPWd: 1.30 0.7-1.1 cm LA Diam: 4.80 2.7-3.8/3.0-4.0 cm LAIDs Index: 2.05 1.5-2.3 cm/m2 LV Mass: 385.62 67-162/88-224 g LV Mass Index: 164.79 43-95/49-115 g/m2 LVOT Diam: 2.40 3.0+(-)1.3 cm 2D Systolic Function EF 4C: 38.30 >55% EF 2C: 43.20 >55% EF BiP: 38.10 >55% Aortic Valve AoV Pk Víctor: 1.38 AoV Mn Víctor: 0.96 AoV VTI: 0.19 AoV Pk Grad: 8.00 Aov Mn Grad: 4.00 BEAU Cont.VTI: 3.74 LVOT LVOT Pk Víctor: 1.04 LVOT Mn Víctor: 0.67 LVOT VTI: 0.16 LVOT Pk Grad: 4.00 LVOT Mn Grad: 2.00 LVOT Diam: 2.40 LVOT Area: 4.52 Right Ventricle TAPSE (mm): 19.50 TVS' Víctor: 10.80 Tricuspid Valve TR Pk Víctor: 2.90 TR Pk Grad: 34.00 RA Press: 15.00 RVSP: 49.00 Great Vessels Aorta Sinus of Valsalva: 3.67 2.0-3.5 cm Ao Asc: 3.50 2.1-3.4 cm Updated in Other Vendor System with Status of Final Rick Vela MD electronically signed on 10/26/2021 1:54:44 PM with status of Final
[2021-10-26 07:47] LABS: HBc Num1 0.06 S/CO (0.00-0.79); HBsAGNum1 0.24 S/CO (0.00-0.99); Hepatitis A Antibody IgM 0.13 Index (0-0.79); Hepatitis B Core Antibody Nonreactive (Nonreactive); Hepatitis B Surface Antigen Negative (Negative); ~HepC Num1 0.29 S/CO (0.00-0.79); ~Hepatitis A Antibody IgM Nonreactive (Nonreactive); ~Hepatitis B Surface Antibody NONREACTIVE (Nonreactive); ~Hepatitis C Antibody Nonreactive (Nonreactive)
[2021-10-26] MEDS: Furosemide 40 MG/4 ML VIAL IVPUSH ×2 (08:32→17:36)
[2021-10-26] MEDS: hydrALAZINE HCl 20 MG/ML VIAL 5 MG IVPUSH (08:32)
[2021-10-26] MEDS: PHENobarbitaL 15 MG TABLET 45 MG PO ×2 (08:33→20:24)
[2021-10-26] MEDS: Multivitamin TABLET 1 TAB PO (08:33)
[2021-10-26] MEDS: Thiamine HCL 100 MG TABLET PO (08:33)
--- NOTE | 2021-10-26 09:20 | PC.NURSE ---
Patient moved to overflow, resting in bed comfortably, denies pain, stood up at bedside without difficulty to urinate in urinal
[2021-10-26] MEDS: 0.9 % Sodium Chloride Flush 3 ML SYRINGE IVFLUSH ×3 (09:31→23:05)
--- NOTE | 2021-10-26 09:42 | P.CDIC_ITS ---
CDI Concurrent Query Documentation Clarification: PHYSICIAN'S DOCUMENTATION REQUEST Date of Query: 10/26/21 0943 Patient Name: Antoni Salguero I Admit Date: 10/25/21 Dear Doctor, A review of the medical record indicates additional documentation may be needed. Please review below and update the documentation accordingly. Clinical Indicators: Height: [] 5'4 Weight: [] 139 kg BMI: [] 52.6 Other Clinical Notes Supporting Significance of the BMI: Risk Factors/Clinical Indicators/Treatments If possible, please provide an associated diagnosis related to the abnormal BMI, such as: For a BMI >= 40: * Overweight * Obesity * Due to excess calories * Drug induced * Due to other cause * Severe or Morbid Obesity * With alveolar hypoventilation * Without alveolar hypoventilation Or: * BMI is not significant * Other (please specify) * Unable to determine Use of terms such as suspected, likely, concern for, or probable (associated with a specific diagnosis that is being evaluated, monitored, or treated as if it exists) are acceptable and can be coded in the inpatient setting, when documented at the time of discharge. Thank you, Rayna Martin . RN Extension: [phone] Please use your independent medical judgment in providing your response. THIS QUERY IS PART OF THE PERMANENT MEDICAL RECORD Provider Response: Other Other Diagnosis: morbid obesity
--- NOTE | 2021-10-26 10:38 | PC.NURSE ---
Hospitialist notified via [facility] [facility] about patients elevated bp, denies headache or other symptoms at this time, talking with visitor at bedside
--- NOTE | 2021-10-26 12:43 | P.CONCA_ITS ---
History of Present Illness History of Present Illness Date of Service: 10/26/21 <ROSA Chow - Last Filed: 10/26/21 13:01> 10/26/21 <Clinton Fernandez MD - Last Filed: 10/26/21 20:26> Requesting physician: Sage Fontenot <ROSA Chow - Last Filed: 10/26/21 13:01> Consult reason: congestive heart failure <ROSA Chow - Last Filed: 10/26/21 13:01> Chief complaint: Fluid Overload <ROSA Chow - Last Filed: 10/26/21 13:01> Narrative: Antoni is a 45-year-old male with no significant prior known medical history who presented to the emergency room yesterday with report of swelling, weight gain and shortness of breath. His BNP was elevated at 1095. Troponin levels normal range. Chest x-ray showing cardiomegaly with right lower lobe infiltrat e. CT of the abdomen showing anasarca with mild ascites. EKG showed sinus tachycardia, rate 123. His blood pressure has been elevated as high as 228/134. He has been treated with IV Lasix, IV hydralazine. Echocardiogram has been completed, result is pending. Cardiology consulted for further evaluation. Today he reports that he has been having increasing swelling in his legs and abdomen over the last 4-6 weeks. He believes he has gained about 40 lb. He has noticed increasing shortness of breath and the need to sit up to breathe easier during the nighttime. He has shortness of breath with physical activity. He smoked for 30 years and quit 1 month ago. His baseline breathing is mildly short of breath with exertion. Overall he is feeling better since admission and states he has been urinating frequently. He has no diagnosis of COPD. He has never had any cardiac issues in the past but admits that he has not been to the doctor in many years. He gets no chest discomfort at rest or with activity, heart palpitations, dizziness, presyncope, syncope. He drinks about 6 alcoholic beverages each day which has been his norm for many years. He drinks both beer and hard alcohol. 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 No known family history of heart disease. His is present during the interview. <ROSA Chow - Last Filed: 10/26/21 13:01> Review of Systems Review of Systems: As above <ROSA Chow - Last Filed: 10/26/21 13:01> Yes all other systems are reviewed and are negative <ROSA Chow - Last Filed: 10/26/21 13:01> PMF Past Medical History Medical History: Medical History No known health problems <ROSA Chow - Last Filed: 10/26/21 13:01> Social History Social History: Social History Alcohol intake: current Alcohol intake frequency: 3 or more drinks per day Alcohol type: beer, wine and hard liquor Patient Tobacco Use Status: Former Tobacco user Smoked in Last 30 Days: Yes Use of substances other than those prescribed or required for medical reasons: No Advance Directives: No Advance Directives Information Provided: No service: No Current occupational status: employed <ROSA Chow - Last Filed: 10/26/21 13:01> Meds Allergies/Adverse reactions: Allergies Allergy/AdvReac Type Severity Reaction Status Date / Time No Known Allergies Allergy Verified 04/25/20 11:26 <ROSA Chow - Last Filed: 10/26/21 13:01> Active Medications: Current Medications Acetaminophen (Acetaminophen 325 Mg Tablet) 650 mg PO Q6H PRN PRN Reason: Pain, Mild (Pain Scale 1-3) Enoxaparin Sodium (Enoxaparin Sodium 40 Mg/0.4 Ml Syringe) 40 mg SUBCUT Q24H [facility] Last Admin: 10/25/21 18:52 Dose: 40 mg Furosemide (Furosemide 40 Mg/4 Ml Vial) 40 mg IVPUSH BID@0900,1800 [facility]; Protocol Last Admin: 10/26/21 08:32 Dose: 40 mg Isosorbide Mononitrate (Isosorbide Mononitrate 30 Mg Tab.Er.24h) 30 mg PO DAILY [facility]; Protocol Losartan Potassium (Losartan Potassium 25 Mg Tablet) 25 mg PO DAILY [facility]; Protocol Multivitamins/Vitamin C (Multivitamin Tablet) 1 tab PO DAILY [facility] Last Admin: 10/26/21 08:33 Dose: 1 tab Ondansetron HCl (Ondansetron Hcl 4 Mg/2 Ml Vial) 4 mg IVPUSH Q8H PRN PRN Reason: Nausea and Vomiting Pharmacy Consult (Consult Rx Etoh Phenob Po Dose) 1 each MISCELLANE ONCE PRN; Protocol PRN Reason: Consult order Phenobarbital (Phenobarbital 15 Mg Tablet) 45 mg PO BID [facility] Stop: 10/27/21 21:01 Last Admin: 10/26/21 08:33 Dose: 45 mg Phenobarbital (Phenobarbital 15 Mg Tablet) 15 mg PO BID [facility] Stop: 10/29/21 21:01 Phenobarbital (Phenobarbital 15 Mg Tablet) 15 mg PO DAILY [facility] Stop: 10/31/21 09:01 Sodium Chloride (0.9 % Sodium Chloride Flush 3 Ml Syringe) 3 ml IVFLUSH QSHIFT [facility] Last Admin: 10/26/21 09:31 Dose: 3 ml Thiamine HCl (Thiamine Hcl 100 Mg Tablet) 100 mg PO DAILY [facility] Last Admin: 10/26/21 08:33 Dose: 100 mg <ROSA Chow - Last Filed: 10/26/21 13:01> Home medications: Home Medications Medication Instructions Recorded Confirmed Last Taken Type nicotine 21 mg/24 hr daily 1 patch transdermal DAILY 10/25/21 10/25/21 10/25/21 History transdermal patch <ROSA Chow - Last Filed: 10/26/21 13:01> Physical Exam Vital Signs: Vital Signs: Last Vital Signs Temp 98.2 F 10/26/21 08:19 Pulse 108 H 10/26/21 10:32 Resp 20 10/26/21 08:19 BP 184/115 H 10/26/21 10:32 Pulse Ox 94 10/26/21 08:19 O2 Del Method 10/26/21 08:19 BMI result Body Mass Index 52.6 <ROSA Chow Last Filed: 10/26/21 13:01> Const: General: cooperative, comfortable and no acute distress <ROSA Solano Cha - Last Filed: 10/26/21 13:01> Orientation/consciousness: patient oriented x3 <ROSA Chow - Last Filed: 10/26/21 13:01> Neck: Neck: Yes normal visual inspection <Ellyn Yuridia [facility] - Last Filed: 10/26/21 13:01> Resp: Effort & Inspection: normal respiratory effort <Ellyn Shi [facility] - Last Filed: 10/26/21 13:01> Auscultation: clear to auscultation bilaterally, no rales, no rhonchi and no wheezes <Ellyn Yuridia [facility] - Last Filed: 10/26/21 13:01> Cardio: Rate: regular rate [facility] - Last Filed: 10/26/21 13:01> Rhythm: regular rhythm <Ellyn Yuridia [facility] - Last Filed: 10/26/21 13:01> Heart sounds: S1 normal heart sound present, S2 normal heart sound present, no gallops, no murmurs and no rubs <Ellyn Yuridia [facility] - Last Filed: 10/26/21 13:01> GI: Other: Large, rounded, semifirm, nontender <Ellyn Yuridia [facility] - Last Filed: 10/26/21 13:01> Neuro: General: patient oriented x3 <Ellyn Yuridia [facility] - Last Filed: 10/26/21 13:01> Extrem: Other: Tight mildly pitting edema of his lower extremities up to his thighs and skin of the abdomen <Ellyn Yuridia [facility] - Last Filed: 10/26/21 13:01> Psych: Appearance: grossly normal <Ellyn Shi [facility] - Last Filed: 10/26/21 13:01> Mental Status: mental status grossly normal <Ellyn Yuridia [facility] - Last Filed: 10/26/21 13:01> Objective Labs and Meds Result diagrams: : 10/25/21 12:06 10/26/21 04:21 <Ellyn Shi [facility] - Last Filed: 10/26/21 13:01> Lab results: Laboratory Results - last 24 hr 10/25/21 10/25/21 10/25/21 12:06 12:06 12:06 PT INR APTT Sodium Potassium Chloride Carbon Dioxide Anion Gap BUN Creatinine Estim Creat Clear Calc Estimated GFR Random Glucose Calcium Magnesium Total Bilirubin 1.2 H Direct Bilirubin 0.7 H AST 33 D ALT 41 H Alkaline Phosphatase 155 H D Troponin I High Sens B-Natriuretic Peptide 1095 H Total Protein 6.8 Albumin 3.9 D Urine Color Urine Appearance Urine pH Ur Specific [place] Urine Protein Urine Glucose (UA) Urine Ketones Urine Blood Urine Nitrite Ur Leukocyte Esterase Urine RBC Urine WBC Ur Squamous Epith Cells Urine Bacteria COVID-19 ([facility]) COVID-19 Clin Com Hepatitis A IgM Ab Nonreactive Hep Bs Antigen Negative Hep Bs Antibody NONREACTIVE Hep B Core Total Ab Nonreactive Hepatitis C Ab (EIA) Nonreactive 10/25/21 10/25/21 10/25/21 15:53 17:27 17:40 PT 13.8 H INR 1.2 H APTT 36.1 Sodium Potassium Chloride Carbon Dioxide Anion Gap BUN Creatinine Estim Creat Clear Calc Estimated GFR Random Glucose Calcium Magnesium Total Bilirubin Direct Bilirubin AST ALT Alkaline Phosphatase Troponin I High Sens 20.6 B-Natriuretic Peptide Total Protein Albumin Urine Color Urine Appearance Urine pH Ur Specific [place] Urine Protein Urine Glucose (UA) Urine Ketones Urine Blood Urine Nitrite Ur Leukocyte Esterase Urine RBC Urine WBC Ur Squamous Epith Cells Urine Bacteria COVID-19 ([facility]) Negative COVID-19 Clin Com See Note Hepatitis A IgM Ab Hep Bs Antigen Hep Bs Antibody Hep B Core Total Ab Hepatitis C Ab (EIA) 10/25/21 10/26/21 10/26/21 17:40 04:21 04:21 PT INR APTT Sodium 138 Potassium 4.1 Chloride 100 Carbon Dioxide 30 H Anion Gap 12 BUN 9 Creatinine 0.86 Estim Creat Clear Calc 138.3 Estimated GFR > 60 Random Glucose 117 H Calcium 9.0 Magnesium 2.1 Total Bilirubin Direct Bilirubin AST ALT Alkaline Phosphatase Troponin I High Sens B-Natriuretic Peptide 1921 H Total Protein Albumin Urine Color YELLOW Urine Appearance CLEAR Urine pH 6.0 Ur Specific [place] 1.015 Urine Protein 2+ H Urine Glucose (UA) NEG Urine Ketones NEG Urine Blood TRACE Urine Nitrite NEG Ur Leukocyte Esterase NEG Urine RBC 0-2 Urine WBC 0 Ur Squamous Epith Cells NONE Urine Bacteria TRACE COVID-19 ([facility]) COVID-19 Clin Com Hepatitis A IgM Ab Hep Bs Antigen Hep Bs Antibody Hep B Core Total Ab Hepatitis C Ab (EIA) <Ellyn Shi [facility] - Last Filed: 10/26/21 13:01> Imaging Radiologist's impression: Impressions Chest X-Ray 10/25/21 12:19 IMPRESSION: Suspect right lower lobe infiltrate or artifact. Rest of lungs are clear Moderate cardiomegaly. <ROSA Chow - Last Filed: 10/26/21 13:01> Assessment and Plan (1) Fluid overload: Status: Acute <ROSA Chow - Last Filed: 10/26/21 13:01> Patient with no known history of heart disease, congestive heart failure who presents with edema, weight gain and shortness of breath. Labs and testing confirm significant fluid overload. He admits to daily alcohol use for many years which may have contributed to cardiomyopathy. Also noted to have very elevated blood pressure this admission. Untreated hypertension can also lead to cardiomyopathy, hypertensive heart disease. He is currently being diuresed with IV Lasix with reported improvement in his breathing. He continues to have signs of fluid overload with edema in his legs all the way to his abdomen. Echocardiogram has been completed, result is pending. Continue IV Lasix. Strict monitoring of I and O's. Close monitoring of electrolytes and kidney function with electrolyte replacement as warranted. Will give nitro paste 1/2 inch now as blood pressure 183/117. Will start on losartan 25 mg daily to treat blood pressure and for neurohormonal modulation assuming that his EF is reduced. Will start isosorbide 30 mg daily to help with preload reduction. Will consider addition of carvedilol if EF reduced. We will follow. <ROSA Chow - Last Filed: 10/26/21 13:01> (2) Hypertension: Status: Acute <ROSA Chow - Last Filed: 10/26/21 13:01> Blood pressure elevated since admission. This may be a finding upon diagnosed in unchanged it hypertension. Also may he may be starting to undergo alcohol withdrawal. He is receiving phenobarbital as treatment for alcohol withdrawal. He is currently calm and appropriate. Will be starting on medications as above. Continue close monitoring of blood pressure. <ROSA Chow - Last Filed: 10/26/21 13:01> (3) Anasarca: Status: Acute <ROSA Chow - Last Filed: 10/26/21 13:01> (4) Alcoholic cardiomyopathy: Status: Acute <ROSA Chow - Last Filed: 10/26/21 13:01> Presumed <ROSA Chow - Last Filed: 10/26/21 13:01> (5) Alcohol abuse: Status: Acute <ROSA Chow - Last Filed: 10/26/21 13:01> Patient admits to 6 alcoholic beverages each day for many years <ROSA Chow - Last Filed: 10/26/21 13:01> [age] year gentleman presenting with new onset congestive heart failure. Patient was seen examined at bedside. Volume overloaded. Agree with IV diuretics. We losartan. Echocardiography showing EF 35-40%. His filling pressures the significantly elevated. Continue diuretics and nitrates. Can add low-dose beta sarah. I would not titrate beta-blockers with the. If BP allows then losartan can be titrated to 50 mg tomorrow. Thank you for allowing me to participate in the care of your patient. Please feel free to contact me if you have any questions. <Clniton Fernandez MD - Last Filed: 10/26/21 20:26> Procedures Date of Service Date of Service: 10/26/21 <ROSA Chow - Last Filed: 10/26/21 13:01>
[2021-10-26] MEDS: Isosorbide Mononitrate 30 MG TAB.ER.24H PO (13:56)
[2021-10-26] MEDS: Nitroglycerin 2 % Oint 1 GM Packet 0.5 INCH TRANSDERMA (13:56)
[2021-10-26] MEDS: Losartan Potassium 25 MG TABLET PO (14:11)
--- NOTE | 2021-10-26 14:41 | P.PNIM_ITS ---
Subjective Subjective Date of Service: 10/26/21 Interval History: Dyspnea improved Still quite edematous No chest pain BP elevated No anxiety or tremulousness Review of Systems Review of Systems: Yes all other systems are reviewed and are negative Physical Exam Vital Signs: Vital Signs: Last Vital Signs Temp 97.9 F 10/26/21 12:57 Pulse 106 H 10/26/21 12:57 Resp 27 H 10/26/21 12:57 BP 174/110 H 10/26/21 12:57 Pulse Ox 96 10/26/21 12:57 O2 Del Method 10/26/21 12:57 BMI result Body Mass Index 52.6 Gen: NAD HEENT: sclera anicteric, moist mucus membranes Neck: supple Lungs: diminished bilaterally Heart: tachycardic, regular, no murmurs Abd: soft, non-tender, non-distended, obese Ext: 3+ LE edema bilaterally Skin: warm/well-perfused Neuro: alert and oriented x3, no focal findings Psych: appropriate affect ? Objective Data Active Medications Acetaminophen (Acetaminophen 325 Mg Tablet) 650 mg PO Q6H PRN PRN Reason: Pain, Mild (Pain Scale 1-3) Carvedilol (Carvedilol 3.125 Mg Tablet) 3.125 mg PO BID [facility]; Protocol Enoxaparin Sodium (Enoxaparin Sodium 40 Mg/0.4 Ml Syringe) 40 mg SUBCUT Q24H [facility] Last Admin: 10/25/21 18:52 Dose: 40 mg Documented By: JAN Furosemide (Furosemide 40 Mg/4 Ml Vial) 40 mg IVPUSH BID@0900,1800 [facility]; Protoco l Last Admin: 10/26/21 08:32 Dose: 40 mg Documented By: YADI Isosorbide Mononitrate (Isosorbide Mononitrate 30 Mg Tab.Er.24h) 30 mg PO DAILY [facility]; Protocol Last Admin: 10/26/21 13:56 Dose: 30 mg Documented By: CHANDRA Losartan Potassium (Losartan Potassium 25 Mg Tablet) 25 mg PO DAILY [facility]; Protocol Last Admin: 10/26/21 14:11 Dose: 25 mg Documented By: CHANDRA Multivitamins/Vitamin C (Multivitamin Tablet) 1 tab PO DAILY [facility] Last Admin: 10/26/21 08:33 Dose: 1 tab Documented By: HO.CONND Ondansetron HCl (Ondansetron Hcl 4 Mg/2 Ml Vial) 4 mg IVPUSH Q8H PRN PRN Reason: Nausea and Vomiting Pharmacy Consult (Consult Rx Etoh Phenob Po Dose) 1 each MISCELLANE ONCE PRN; Protocol PRN Reason: Consult order Phenobarbital (Phenobarbital 15 Mg Tablet) 45 mg PO BID [facility] Stop: 10/27/21 21:01 Last Admin: 10/26/21 08:33 Dose: 45 mg Documented By: YADI Phenobarbital (Phenobarbital 15 Mg Tablet) 15 mg PO BID [facility] Stop: 10/29/21 21:01 Phenobarbital (Phenobarbital 15 Mg Tablet) 15 mg PO DAILY [facility] Stop: 10/31/21 09:01 Sodium Chloride (0.9 % Sodium Chloride Flush 3 Ml Syringe) 3 ml IVFLUSH QSHIFT [facility] Last Admin: 10/26/21 14:00 Dose: Not Given Documented By: CHANDRA Non-Admin Reason: Med Not Available Thiamine HCl (Thiamine Hcl 100 Mg Tablet) 100 mg PO DAILY [facility] Last Admin: 10/26/21 08:33 Dose: 100 mg Documented By: YADI Labs CBC & Chem 7: 10/25/21 12:06 10/26/21 04:21 Labs: Laboratory Results - last 24 hr 10/25/21 10/25/21 10/25/21 12:06 12:06 12:06 PT INR APTT Anion Gap Estim Creat Clear Calc Estimated GFR Random Glucose Calcium Magnesium Total Bilirubin 1.2 H Direct Bilirubin 0.7 H AST 33 D ALT 41 H Alkaline Phosphatase 155 H D Troponin I High Sens B-Natriuretic Peptide 1095 H Total Protein 6.8 Albumin 3.9 D Urine Color Urine Appearance Urine pH Ur Specific [place] Urine Protein Urine Glucose (UA) Urine Ketones Urine Blood Urine Nitrite Ur Leukocyte Esterase Urine RBC Urine WBC Ur Squamous Epith Cells Urine Bacteria COVID-19 ([facility]) COVID-19 Clin Com Hepatitis A IgM Ab Nonreactive Hep Bs Antigen Negative Hep Bs Antibody NONREACTIVE Hep B Core Total Ab Nonreactive Hepatitis C Ab (EIA) Nonreactive 10/25/21 10/25/21 10/25/21 15:53 17:27 17:40 PT 13.8 H INR 1.2 H APTT 36.1 Anion Gap Estim Creat Clear Calc Estimated GFR Random Glucose Calcium Magnesium Total Bilirubin Direct Bilirubin AST ALT Alkaline Phosphatase Troponin I High Sens 20.6 B-Natriuretic Peptide Total Protein Albumin Urine Color Urine Appearance Urine pH Ur Specific [place] Urine Protein Urine Glucose (UA) Urine Ketones Urine Blood Urine Nitrite Ur Leukocyte Esterase Urine RBC Urine WBC Ur Squamous Epith Cells Urine Bacteria COVID-19 ([facility]) Negative COVID-19 Clin Com See Note Hepatitis A IgM Ab Hep Bs Antigen Hep Bs Antibody Hep B Core Total Ab Hepatitis C Ab (EIA) 10/25/21 10/26/21 10/26/21 17:40 04:21 04:21 PT INR APTT Anion Gap 12 Estim Creat Clear Calc 138.3 Estimated GFR > 60 Random Glucose 117 H Calcium 9.0 Magnesium 2.1 Total Bilirubin Direct Bilirubin AST ALT Alkaline Phosphatase Troponin I High Sens B-Natriuretic Peptide 1921 H Total Protein Albumin Urine Color YELLOW Urine Appearance CLEAR Urine pH 6.0 Ur Specific [place] 1.015 Urine Protein 2+ H Urine Glucose (UA) NEG Urine Ketones NEG Urine Blood TRACE Urine Nitrite NEG Ur Leukocyte Esterase NEG Urine RBC 0-2 Urine WBC 0 Ur Squamous Epith Cells NONE Urine Bacteria TRACE COVID-19 ([facility]) COVID-19 Clin Com Hepatitis A IgM Ab Hep Bs Antigen Hep Bs Antibody Hep B Core Total Ab Hepatitis C Ab (EIA) TTE (10/26/21) Technically limited study despite use of contrast agent? ? 2. LV is mildly dilated with mild LVH with moderately reduced LV systolic function with LVEF of 35-40%? 3. Limited cardiac valvular Dopplers ? 4.? Mildly to moderately elevated right ventricular systolic ? ? pressure with significantly elevated right atrial pressures? ? ? Assessment and Plan (1) Acute HFrEF (heart failure with reduced ejection fraction): Status: Acute Plan 45yo M with history of daily, heavy alcohol use presenting with 4 wk of weight gain, leg and abdominal swelling, and progressive exertional dyspnea and orthopnea.? He is markedly fluid-overloaded on exam.? 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 # acute HFrEF # cardiomyopathy, likely EtOH - continue diuresis with IV furosemide [urinated 5000 L thus far], monitor I+O/weight/BNP/BMP/Mg - Cardiology consulted - started neurohormonal modulation with losartan + carvedilol, also Imdur for further preload reduction - will need outpt Cardiology f/u, also needs better BP control as well as sleep study as outpt to assess for MECHE given component of R-sided HF # HTN - start medications as above # EtOH withdrawal - suspect some component of his hypertension and tachycardia are due to EtOH withdrawal; on d#2 of phenobarbital taper, consulting Addiction Medicine + CARE Team, giving thiamine + multivitamin # mild transaminasemia - likely fatty liver disease from EtOH vs obesity; HBV/HCV negative # morbid obesity - weight loss # VTE ppx - LMWH Quality Stroke Does the patient have a stroke diagnosis?: No VTE Prior VTE?: No VTE Risk Level:: Medical - moderate - high VTE Device Contraindication: N/A - Device Ordered VTE Drug Contraindication: N/A - Med Ordered
--- NOTE | 2021-10-26 15:52 | MHC.RECOVRN ---
Met with pt in [facility] to discuss alcohol use. Pt in bed, awake, alert, engaged in conversation. Pts , [place], present. Pt provided consent to discuss AUD with present. Pt reports drinking 6-8 drinks every evening for years. Pt reports this has never interfered with work, driving, or other ADLs. Pt reports no hx of treatment for AUD including ATS. When asked about hospital admissions, pt reports an ED visit about 1 year ago for pancreatitis which pt did not immediately associate with alcohol use. Pt reports having decreased alcohol use in the past as well as abstinence, both were years ago. Pt attributes those periods to doing other things. Pt was educated regarding community supports and resources, including recovery coaching and [facility]. Pt declines referrals and speaking to a women's basketball coach at this time. Pt would like to think about [facility] and discuss at another time. Provided pt with t/w contact information if needed. Will follow up tomorrow. Discussed with Marilyn Qureshi APRN.
[2021-10-26] MEDS: Enoxaparin Sodium 40 MG/0.4 ML SYRINGE SUBCUT (17:36)
[2021-10-26] MEDS: carvediloL 3.125 MG TABLET PO (20:24)
[2021-10-27] VITALS (11 sets, daily range): BP systolic 133–178; BP diastolic 81–111; PULSE 88–108; RESP 11–22; TEMP 36.4–37.1; O2SAT 88–99
[2021-10-27 06:42] LABS: Anion Gap 13 (12-20); Blood Urea Nitrogen 11 mg/dL (9-16); Carbon Dioxide 32 mmol/L (22-29); Chloride 96 mmol/L (96-108); Creatinine Clr Calc Pharmacy 143.3; Estimated Glomerular Filt Rate > 60; Glucose Random 108 mg/dL (60-115); Magnesium 2.1 mg/dL (1.6-2.6); Potassium 4.2 mmol/L (3.3-5.1); Sodium 137 mmol/L (135-145)
[2021-10-27 06:47] LABS: B Type Natriuretic Peptide 859 pg/mL (<100)
[2021-10-27] MEDS: Multivitamin TABLET 1 TAB PO (07:57)
[2021-10-27] MEDS: Losartan Potassium 25 MG TABLET PO (07:58)
[2021-10-27] MEDS: Isosorbide Mononitrate 30 MG TAB.ER.24H PO (07:58)
[2021-10-27] MEDS: Thiamine HCL 100 MG TABLET PO (07:58)
[2021-10-27] MEDS: carvediloL 3.125 MG TABLET PO ×2 (07:58→20:21)
[2021-10-27] MEDS: PHENobarbitaL 15 MG TABLET 45 MG PO ×2 (07:58→20:21)
[2021-10-27] MEDS: Furosemide 40 MG/4 ML VIAL IVPUSH ×2 (07:59→16:30)
[2021-10-27] MEDS: 0.9 % Sodium Chloride Flush 3 ML SYRINGE IVFLUSH ×2 (08:03→16:30)
[2021-10-27 08:22] LABS: Estimated Average Glucose 146 mg/dL; Hemoglobin A1c % 6.7 %
[2021-10-27] MEDS: Losartan Potassium 50 MG TABLET PO (12:11)
--- NOTE | 2021-10-27 12:52 | PM.PNCARD ---
Subjective Subjective Date of Service: 10/27/21 <ROSA Chow - Last Filed: 10/27/21 14:12> 10/27/21 <Clinton Fernandez MD - Last Filed: 10/27/21 21:53> Principal diagnosis: acute CHF, uncontrolled HTN <ROSA Chow - Last Filed: 10/27/21 14:12> Interval history: Seen at 1030. Today he reports some improvement in swelling of stomach. Legs still with tight swelling. Breathing improving. No cough, slept with HOB elevated partially. No chest pains, palpitation, headache, dizziness. Ambulating to bathroom without assistance. Has been measuring outputs. Intake not documented. BP still elevated. Tele showing SR/ ST. 88-108. <ROSA Chow - Last Filed: 10/27/21 14:12> Review of Systems Review of Systems as above <ROSA Chow - Last Filed: 10/27/21 14:12> Yes all other systems are reviewed and are negative <ROSA Chow - Last Filed: 10/27/21 14:12> Physical Exam Vital Signs: Last Vital Signs Temp 98.0 F 10/27/21 11:00 Pulse 104 H 10/27/21 11:00 Resp 20 10/27/21 11:00 BP 168/91 H 10/27/21 11:00 Pulse Ox 95 10/27/21 11:00 O2 Del Method 10/27/21 11:00 O2 Flow Rate 2 10/27/21 05:39 BMI result Body Mass Index 52.6 <ROSA Chow - Last Filed: 10/27/21 14:12> Const General: cooperative, no acute distress, alert and awake <ROSA Chow - Last Filed: 10/27/21 14:12> Neck Neck: Yes normal visual inspection <ROSA Chow Last Filed: 10/27/21 14:12> Resp Effort & Inspection: normal respiratory effort, able to speak in complete sentences and not labored <ROSA Chow Last Filed: 10/27/21 14:12> Auscultation: clear to auscultation bilaterally (Dim in lower lobes), no rales, no rhonchi and no wheezes <[facility] YuridiaLORENEC - Last Filed: 10/27/21 14:12> Cardio Palpation: normal PMI <[facility] - Last Filed: 10/27/21 14:12> Rate: tachycardic <[facility] - Last Filed: 10/27/21 14:12> Rhythm: regular rhythm <[facility] - Last Filed: 10/27/21 14:12> Heart sounds: S1 normal heart sound present and S2 normal heart sound present <[facility] - Last Filed: 10/27/21 14:12> GI Other: Obese, round, firm, nontender <[facility] - Last Filed: 10/27/21 14:12> Extrem Other: Tight edema in lower legs, into upper thighs <[facility] - Last Filed: 10/27/21 14:12> Objective Labs and Meds Result diagrams: : 10/25/21 12:06 10/27/21 06:01 <[facility] Yuridia [employer] - Last Filed: 10/27/21 14:12> Lab results: Laboratory Results - last 24 hr 10/27/21 10/27/21 10/27/21 06:01 06:01 06:01 Sodium 137 Potassium 4.2 Chloride 96 Carbon Dioxide 32 H Anion Gap 13 BUN 11 Creatinine 0.83 Estim Creat Clear Calc 143.3 Estimated GFR > 60 Random Glucose 108 Estimat Average Glucose 146 Hemoglobin A1c % 6.7 Calcium 9.0 Magnesium 2.1 B-Natriuretic Peptide 859 H <[facility] [employer] - Last Filed: 10/27/21 14:12> Imaging Radiologist's impression: Impressions Abdomen/Pelvis CT 10/25/21 15:33 IMPRESSION: -Study limitations (respiratory motion artifact, no oral or IV contrast). Suggest follow-up exam if symptoms persist. -Generalized anasarca. Mild ascites. No bowel obstruction or focal bowel wall thickening. -No biliary ductal dilatation or hydronephrosis. Unremarkable pancreas. <[facility] Yuridia, [employer]C - Last Filed: 10/27/21 14:12> Progress Note: A&P Assessment and plan (1) Acute HFrEF (heart failure with reduced ejection fraction): Status: Acute <Ellyn Shi ROSA - Last Filed: 10/27/21 14:12> Assessment and Plan: Admit with edema, weight gain, shortness of breath. Treated for acute heart failure. Known history of alcohol abuse also being found to have uncontrolled hypertension this admission. His echocardiogram done yesterday shows EF 35-40%, mild LVH, mild to moderate increase in the RV SP, heyw-nd-audakdth pulmonary hypertension. Has no prior known history of any cardiac condition. He is currently being diuresed with IV Lasix. His out puts have been documented however no intake documented so unclear of accurate fluid balance. He does report some improvement in his breathing and abdomen size. Continues to have significant leg edema. Labs show potassium 4.2, creatinine 0.83. BNP 1921 yesterday and down to 859 today. Blood pressure remains elevated. He has been started on Imdur to help with preload reduction. On carvedilol and losartan for blood pressure control and neurohormonal modulation. He continues on Lasix 40 mg IV b.i.d. output recorded as being 6 L yesterday., will continue on current dose. He needs strict I&O monitoring. Close monitoring of electrolytes and kidney function with electrolyte replacement as warranted. <Ellyn Schwarz ROSA Shi - Last Filed: 10/27/21 14:12> (2) Uncontrolled hypertension: Status: Acute <Ellyn CarverROSA yeager - Last Filed: 10/27/21 14:12> Assessment and Plan: Blood pressure is elevated this admission. He denies any known history of hypertension however states he has not been to the doctor in many years. It is possible that he has had uncontrolled hypertension for some time as his echo does show mild LVH. This can contribute to his reduced EF. He is now on Imdur, carvedilol and losartan as well as Lasix. Blood pressure slowly improving <ROSA Chow - Last Filed: 10/27/21 14:12> (3) Alcohol abuse: Status: Acute <Ellyn Schwarz ROSA Shi - Last Filed: 10/27/21 14:12> Assessment and Plan: Admits to 6 alcoholic beverages daily. Currently being treated with phenobarbital for potential alcohol withdrawal. <ROSA Chow - Last Filed: 10/27/21 14:12> (4) Alcoholic cardiomyopathy: Status: Acute <ROSA Chow - Last Filed: 10/27/21 14:12> Assessment and Plan: Patient found to have cardiomyopathy this admission. This may be alcoholic related, also could be from uncontrolled hypertension or ischemic. Further evaluation will be done once heart failure is controlled. Neurohormonal modulation has been started <ROSA Chow - Last Filed: 10/27/21 14:12> Time Spent With Patient Time: Total time spent is greater than 50% in coordination of care (as documented) at patient's floor/unit and/or counseling patient: 24 <ROSA Chow - Last Filed: 10/27/21 14:12> Progress Note: Quality Stroke Does the patient have a stroke diagnosis?: No <ROSA Chow - Last Filed: 10/27/21 14:12> Procedures Date of Service Date of Service: 10/27/21 <ROSA Chow - Last Filed: 10/27/21 14:12>
--- NOTE | 2021-10-27 15:24 | HO.PM.IMPN ---
Subjective Subjective Date of Service: 10/27/21 Interval History: seen and examined this morning Follow-up for cardiomyopathy, controlled hypertension Reports breathing is improved Does not feel shaky, sweaty, or like he is withdrawing at all no chest pain Review of Systems Review of Systems: Yes all other systems are reviewed and are negative Constitutional Constitutional: Denies chills and Denies fever(s) Cardiovascular Cardiovascular: Denies chest pain, Denies palpitations and Denies dyspnea Respiratory Respiratory: Denies cough and Denies dyspnea Gastrointestinal Gastrointestinal: Denies abdominal pain, Denies diarrhea, Denies nausea and Denies vomiting Endocrine Endocrine: Denies palpitations Physical Exam Vital Signs: Vital Signs: Last Vital Signs Temp 98.0 F 10/27/21 11:00 Pulse 104 H 10/27/21 11:00 Resp 20 10/27/21 11:00 BP 168/91 H 10/27/21 11:00 Pulse Ox 95 10/27/21 11:00 O2 Del Method 10/27/21 11:00 O2 Flow Rate 2 10/27/21 05:39 BMI result Body Mass Index 52.6 Const: General: cooperative, comfortable, alert and awake Nutritional Appearance: obese Orientation/consciousness: patient oriented x3 Resp: Effort & Inspection: normal respiratory effort and able to speak in complete sentences Auscultation: clear to auscultation bilaterally Cardio: Rhythm: regular rhythm Heart sounds: S1 normal heart sound present and S2 normal heart sound present GI: Palpation (GI): Soft to palpation and nontender Neuro: General: patient oriented x3 and CN's II-XI intact bilaterally Extrem: Other: b/l leg edema Objective Data Active Medications Acetaminophen (Acetaminophen 325 Mg Tablet) 650 mg PO Q6H PRN PRN Reason: Pain, Mild (Pain Scale 1-3) Carvedilol (Carvedilol 3.125 Mg Tablet) 3.125 mg PO BID [facility]; Protocol Last Admin: 10/27/21 07:58 Dose: 3.125 mg Documented By: CRISTINA Enoxaparin Sodium (Enoxaparin Sodium 40 Mg/0.4 Ml Syringe) 40 mg SUBCUT Q24H CHAPIN Last Admin: 10/26/21 17:36 Dose: 40 mg Documented By: CHANDRA Furosemide (Furosemide 40 Mg/4 Ml Vial) 40 mg IVPUSH BID@0900,1800 [facility]; Protocol Last Admin: 10/27/21 07:59 Dose: 40 mg Documented By: CRISTINA Isosorbide Mononitrate (Isosorbide Mononitrate 30 Mg Tab.Er.24h) 30 mg PO DAILY [facility]; Protocol Last Admin: 10/27/21 07:58 Dose: 30 mg Documented By: CRISTINA Losartan Potassium (Losartan Potassium 50 Mg Tablet) 50 mg PO DAILY [facility]; Protocol Last Admin: 10/27/21 12:11 Dose: 50 mg Documented By: DIONY Multivitamins/Vitamin C (Multivitamin Tablet) 1 tab PO DAILY [facility] Last Admin: 10/27/21 07:57 Dose: 1 tab Documented By: CRISTINA Ondansetron HCl (Ondansetron Hcl 4 Mg/2 Ml Vial) 4 mg IVPUSH Q8H PRN PRN Reason: Nausea and Vomiting Pharmacy Consult (Consult Rx Etoh Phenob Po Dose) 1 each MISCELLANE ONCE PRN; Protocol PRN Reason: Consult order Phenobarbital (Phenobarbital 15 Mg Tablet) 45 mg PO BID [facility] Stop: 10/27/21 21:01 Last Admin: 10/27/21 07:58 Dose: 45 mg Documented By: CRISTINA Phenobarbital (Phenobarbital 15 Mg Tablet) 15 mg PO BID [facility] Stop: 10/29/21 21:01 Phenobarbital (Phenobarbital 15 Mg Tablet) 15 mg PO DAILY [facility] Stop: 10/31/21 09:01 Sodium Chloride (0.9 % Sodium Chloride Flush 3 Ml Syringe) [facility] Last Admin: 10/27/21 08:03 Dose: 3 ml Documented By: CRISTINA Thiamine HCl (Thiamine Hcl 100 Mg Tablet) 100 mg PO DAILY [facility] Last Admin: 10/27/21 07:58 Dose: 100 mg Documented By: CRISTINA Labs CBC & Chem 7: 10/25/21 12:06 10/27/21 06:01 Labs: Laboratory Results - last 24 hr 10/27/21 10/27/21 10/27/21 06:01 06:01 06:01 Anion Gap 13 Estim Creat Clear Calc 143.3 Estimated GFR > 60 Random Glucose 108 Estimat Average Glucose 146 Hemoglobin A1c % 6.7 Calcium 9.0 Magnesium 2.1 B-Natriuretic Peptide 859 H Assessment and Plan (1) Acute HFrEF (heart failure with reduced ejection fraction): Status: Acute Plan 45yo M with history of daily, heavy alcohol use presenting with 4 wk of weight gain, leg and abdominal swelling, and progressive exertional dyspnea and orthopnea.? He is markedly fluid-overloaded on exam.? 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 # acute HFrEF # cardiomyopathy, likely r/t EtOH vs hypertension - continue diuresis with IV furosemide [negative nearly 10L so far], monitor I+O/weight/BNP/BMP/Mg - Cardiology consulted - started neurohormonal modulation with losartan + carvedilol, also Imdur for further preload reduction - will need outpt Cardiology f/u, also needs better BP control as well as sleep study as outpt to assess for MECHE given component of R-sided HF # HTN - increase losartan, continue Imdur, carvedilol # EtOH dependence No evidence of alcohol withdrawal at this time - suspect some component of his hypertension and tachycardia are due to EtOH withdrawal -continue phenobarbital taper - seen by Addiction Medicine + CARE Team, giving thiamine + multivitamin # mild transaminasemia - likely fatty liver disease from EtOH vs obesity; HBV/HCV negative # morbid obesity - weight loss # VTE ppx - LMWH Attending-Dr. Frederick Requires ongoing inpatient hospitalization for further management of acute heart failure, IV Lasix, phenobarbital to prevent alcohol withdrawal Quality Stroke Does the patient have a stroke diagnosis?: No VTE Prior VTE?: No VTE Risk Level:: Medical - moderate - high VTE Device Contraindication: N/A - Device Ordered VTE Drug Contraindication: N/A - Med Ordered
[2021-10-27] MEDS: Enoxaparin Sodium 40 MG/0.4 ML SYRINGE SUBCUT (16:30)
[2021-10-28 04:00] VITALS: BP 167/83; PULSE 101; RESP 16; TEMP 36.2; O2SAT 89
[2021-10-28 07:42] LABS: Anion Gap 12 (12-20); Blood Urea Nitrogen 11 mg/dL (9-16); Carbon Dioxide 34 mmol/L (22-29); Chloride 94 mmol/L (96-108); Creatinine Clr Calc Pharmacy 139.9; Estimated Glomerular Filt Rate > 60; Glucose Random 110 mg/dL (60-115); Potassium 4.3 mmol/L (3.3-5.1); Sodium 136 mmol/L (135-145)
[2021-10-28 08:00] VITALS: BP 168/120; PULSE 108; RESP 16; TEMP 36.7; O2SAT 96
[2021-10-28] MEDS: Furosemide 40 MG/4 ML VIAL IVPUSH ×2 (10:50→19:36)
[2021-10-28] MEDS: Isosorbide Mononitrate 30 MG TAB.ER.24H PO (10:51)
[2021-10-28] MEDS: PHENobarbitaL 15 MG TABLET PO ×2 (10:51→20:13)
[2021-10-28] MEDS: Multivitamin TABLET 1 TAB PO (10:52)
[2021-10-28] MEDS: Thiamine HCL 100 MG TABLET PO (10:52)
[2021-10-28] MEDS: carvediloL 3.125 MG TABLET PO ×2 (10:52→20:12)
[2021-10-28] MEDS: Losartan Potassium 50 MG TABLET PO (10:52)
--- NOTE | 2021-10-28 11:55 | P.PNCA_ITS ---
Subjective Subjective Date of Service: 10/28/21 <ROSA Chow - Last Filed: 10/28/21 12:08> 10/28/21 <Clinton Fernandez MD - Last Filed: 10/28/21 22:36> Principal diagnosis: acute CHF, uncontrolled HTN <ROSA Chow - Last Filed: 10/28/21 12:08> Interval history: Seen at 1110. Today he is seen walking in room, steady on feet. Denies feeling sob with activity. States his breathing is close to normal. Slept with HOB partly elevated which is his usual. No cough. No chest pains, palpitation, dizziness. He states abdomen is much softer that admit. Still has tight leg edema which has improved some. Voiding frequent large amounts. present. <ROSA Chow - Last Filed: 10/28/21 12:08> Review of Systems Review of Systems as above <ROSA Chow - Last Filed: 10/28/21 12:08> Yes all other systems are reviewed and are negative <ROSA Chow - Last Filed: 10/28/21 12:08> Physical Exam Vital Signs: Last Vital Signs Temp 98.1 F 10/28/21 08:00 Pulse 108 H 10/28/21 08:00 Resp 16 10/28/21 08:00 BP 168/120 H 10/28/21 08:00 Pulse Ox 96 10/28/21 08:00 O2 Del Method 10/28/21 08:00 O2 Flow Rate 2 10/27/21 05:39 BMI result Body Mass Index 52.6 <ROSA Chow - Last Filed: 10/28/21 12:08> Const Other: morbidly obese <ROSA Chow Last Filed: 10/28/21 12:08> General: cooperative, comfortable and no acute distress <ROSA Chow Last Filed: 10/28/21 12:08> Orientation/consciousness: patient oriented x3 <ROSA Chow Last Filed: 10/28/21 12:08> Neck Neck: Yes normal visual inspection and Yes no JVD <LANCE ChowC - Last Filed: 10/28/21 12:08> Resp Effort & Inspection: normal respiratory effort <Ellyn YuridiaLORENEC - Last Filed: 10/28/21 12:08> Auscultation: clear to auscultation bilaterally, no crackles, no rales, no rhonchi and no wheezes <Ellyn YuridiaLORENEC - Last Filed: 10/28/21 12:08> Cardio Rate: regular rate <[facility][1] YuridiaLORENEC - Last Filed: 10/28/21 12:08> Rhythm: regular rhythm <[facility][1] Yuridia [email or web address]C - Last Filed: 10/28/21 12:08> Heart sounds: S1 normal heart sound present, S2 normal heart sound present, no gallops, no murmurs and no rubs <[facility][1] YuridiaLORENE-C - Last Filed: 10/28/21 12:08> GI Other: large, round, nontender, no pitting edema in abdominal skin like seen 2 days ago. <Ellyn YuridiaLORENEC - Last Filed: 10/28/21 12:08> Neuro General: patient oriented x3 <Ellyn LORENE Shi-C - Last Filed: 10/28/21 12:08> Extrem Other: tight edema in legs, some improvement however still present <Ellyn YuridiaLORENE-C - Last Filed: 10/28/21 12:08> Psych Appearance: grossly normal <Ellyn LORENE ShiC - Last Filed: 10/28/21 12:08> Mental Status: mental status grossly normal <[facility][1] Yuridia [email or web address]C - Last Filed: 10/28/21 12:08> Objective Labs and Meds Result diagrams: : 10/25/21 12:06 10/28/21 06:49 <Ellyn LORENE Shi-C - Last Filed: 10/28/21 12:08> Lab results: Laboratory Results - last 24 hr 10/28/21 06:49 Sodium 136 Potassium 4.3 Chloride 94 L Carbon Dioxide 34 H Anion Gap 12 BUN 11 Creatinine 0.85 Estim Creat Clear Calc 139.9 Estimated GFR > 60 Random Glucose 110 Calcium 9.0 <Ellyn Schwarz ROSA Shi - Last Filed: 10/28/21 12:08> Progress Note: A&P Assessment and plan (1) Acute HFrEF (heart failure with reduced ejection fraction): Status: Acute <Ellyn ShiROSA - Last Filed: 10/28/21 12:08> Assessment and Plan: Admit with edema, weight gain, shortness of breath. Being Treated for acute heart failure. Known history of alcohol abuse also being found to have uncontrolled hypertension this admission. His echocardiogram 10/26/21 shows EF 35-40%, mild LVH, mild to moderate increase in the RVSP, [id number] pulmonary hypertension. Has no prior known history of any cardiac condition. He is currently being diuresed with IV Lasix. His out puts have been documented however intakes not documented accurately, so fluid balance is unclear. There is 11 liters of urine outpt documented in last 2 days. He does report improvement in his breathing and abdomen size. Continues to have significant leg edema. Labs show potassium 4.2, creatinine 0.85. Blood pressure elevated b ut improving. He was started on Imdur to help with preload reduction. On carvedilol and losartan for blood pressure control and neurohormonal modulation. He continues on Lasix 40 mg IV b.i.d. Ongoing medical management. He needs strict I&O monitoring. Close monitoring of electrolytes and kidney function with electrolyte replacement as warranted. Outpt ischemic eval when HF stabilized. We will follow. <Ellyn Chong ROSA Shi - Last Filed: 10/28/21 12:08> (2) Uncontrolled hypertension: Status: Acute <Ellyn Schwarz ROSA Shi - Last Filed: 10/28/21 12:08> Assessment and Plan: Blood pressure is elevated this admission. He denies any known history of hypertension however states he has not been to the doctor in many years. It is possible that he has had uncontrolled hypertension for some time as his echo does show mild LVH. This can contribute to his reduced EF. He is now on Imdur, carvedilol and losartan as well as Lasix. Blood pressure slowly improving <ROSA Chow - Last Filed: 10/28/21 12:08> (3) Alcohol abuse: Status: Acute <EllynROSA Lowery - Last Filed: 10/28/21 12:08> Assessment and Plan: Admits to 6 alcoholic beverages daily. Currently being treated with phenobarbital for potential alcohol withdrawal. Remains pleasant and appropriate at this time. <ROSA Chow - Last Filed: 10/28/21 12:08> (4) Alcoholic cardiomyopathy: Status: Acute <ROSA Chow - Last Filed: 10/28/21 12:08> Assessment and Plan: Patient found to have cardiomyopathy this admission. This may be alcoholic related, also could be from uncontrolled hypertension or ischemic. Further evaluation will be done once heart failure is controlled. Neurohormonal modulation has been started <ROSA Chow - Last Filed: 10/28/21 12:08> Assessment and Plan: Pleasant 45-year-old gentleman with acute congestive heart failure. He continues to be hypertensive and hypovolemic. Continue IV diuretics as before. Titrating losartan and carvedilol. We will follow along with you and adjust medications. Monitor electrolytes closely. <Clinton Fernandez MD - Last Filed: 10/28/21 22:36> Time Spent With Patient Time: Total time spent is greater than 50% in coordination of care (as documented) at patient's floor/unit and/or counseling patient: 22 <ROSA hCow - Last Filed: 10/28/21 12:08> Progress Note: Quality Stroke Does the patient have a stroke diagnosis?: No <ROSA Chow Last Filed: 10/28/21 12:08> Procedures Date of Service Date of Service: 10/28/21 <ROSA Chow - Last Filed: 10/28/21 12:08>
--- NOTE | 2021-10-28 14:37 | HO.ADDICTCON ---
History of Present Illness Date of Service: 10/28/2021 Chief Complaint: Fluid Overload Reason for Consult: alcohol use disorder eval and treat Requesting physician: Sage Fontenot Sources of Information: patient interviewed and chart reviewed HPI Narrative: Patient is a 45 year old male currently medically admitted with alcohol withdrawal, acute HF and cardiomyopathy likely related to alcohol use. Patient seen by Recovery support RN several times during admission and expressing interests in starting medication for alcohol use disorder. Notes reviewed. Patient seen in room 470 with RSRN. Awake, alert, pleasant and engaged in interview. Reporting daily alcohol use, for many years. Had one year of recoevery, greater than 10 years ago. Interested in starting naltrexone. Reviewed goals of treatment, side effects, and dosing. Review of Systems Constitutional: Reports as per HPI and Reports no additional constitutional complaints Diagnostics Vital Signs (24Hr): Vital Signs - 24 hr 10/27/21 15:46 10/27/21 19:20 10/27/21 23:18 Temperature 98.7 F 98.2 F 97.6 F Pulse Rate 103 H 106 H 99 Respiratory Rate 18 18 20 Blood Pressure 164/109 H 144/93 H 167/97 H Pulse Oximetry 96 94 95 Oxygen Delivery Method Room Air Room Air Room Air 10/28/21 04:00 10/28/21 08:00 Temperature 97.2 F 98.1 F Pulse Rate 101 H 108 H Respiratory Rate 16 16 Blood Pressure 167/83 H 168/120 H Pulse Oximetry 89 L 96 Oxygen Delivery Method Room Air BMI result Body Mass Index 52.6 Labs Results: 10/25/21 12:06 10/28/21 06:49 Labs: Laboratory Results - last 48 hr 10/27/21 10/27/21 10/27/21 06:01 06:01 06:01 Sodium 137 Potassium 4.2 Chloride 96 Carbon Dioxide 32 H Anion Gap 13 BUN 11 Creatinine 0.83 Estim Creat Clear Calc 143.3 Estimated GFR > 60 Random Glucose 108 Estimat Average Glucose 146 Hemoglobin A1c % 6.7 Calcium 9.0 Magnesium 2.1 B-Natriuretic Peptide 859 H 10/28/21 06:49 Sodium 136 Potassium 4.3 Chloride 94 L Carbon Dioxide 34 H Anion Gap 12 BUN 11 Creatinine 0.85 Estim Creat Clear Calc 139.9 Estimated GFR > 60 Random Glucose 110 Estimat Average Glucose Hemoglobin A1c % Calcium 9.0 Magnesium B-Natriuretic Peptide Imaging Radiology Impressions: ITS Impressions Chest X-Ray 10/25/21 12:19 IMPRESSION: Suspect right lower lobe infiltrate or artifact. Rest of lungs are clear Moderate cardiomegaly. Abdomen/Pelvis CT 10/25/21 15:33 IMPRESSION: -Study limitations (respiratory motion artifact, no oral or IV contrast). Suggest follow-up exam if symptoms persist. -Generalized anasarca. Mild ascites. No bowel obstruction or focal bowel wall thickening. -No biliary ductal dilatation or hydronephrosis. Unremarkable pancreas. Mental Status Exam Mental Status Exam Patient Appearance: Appropriate Level of Consciousness: Awake and Appropriate Patient Behavior: Appropriate and Cooperative Medications Medications Current Medications Acetaminophen (Acetaminophen 325 Mg Tablet) 650 mg PO Q6H PRN PRN Reason: Pain, Mild (Pain Scale 1-3) Carvedilol (Carvedilol 3.125 Mg Tablet) 3.125 mg PO BID [facility]; Protocol Last Admin: 10/28/21 10:52 Dose: 3.125 mg Enoxaparin Sodium (Enoxaparin Sodium 40 Mg/0.4 Ml Syringe) 40 mg SUBCUT Q24H [facility] Last Admin: 10/27/21 16:30 Dose: 40 mg Furosemide (Furosemide 40 Mg/4 Ml Vial) 40 mg IVPUSH BID@0900,1800 [facility]; Protocol Last Admin: 10/28/21 10:50 Dose: 40 mg Isosorbide Mononitrate (Isosorbide Mononitrate 30 Mg Tab.Er.24h) 30 mg PO DAILY [facility]; Protocol Last Admin: 10/28/21 10:51 Dose: 30 mg Losartan Potassium (Losartan Potassium 50 Mg Tablet) 50 mg PO DAILY [facility]; Protocol Last Admin: 10/28/21 10:52 Dose: 50 mg Multivitamins/Vitamin C (Multivitamin Tablet) 1 tab PO DAILY [facility] Last Admin: 10/28/21 10:52 Dose: 1 tab Naltrexone HCl (Naltrexone Hcl 50 Mg Tablet) 50 mg PO DAILY [facility] Ondansetron HCl (Ondansetron Hcl 4 Mg/2 Ml Vial) 4 mg IVPUSH Q8H PRN PRN Reason: Nausea and Vomiting Pharmacy Consult (Consult Rx Etoh Phenob Po Dose) 1 each MISCELLANE ONCE PRN; Protocol PRN Reason: Consult order Phenobarbital (Phenobarbital 15 Mg Tablet) 15 mg PO BID [facility] Stop: 10/29/21 21:01 Last Admin: 10/28/21 10:51 Dose: 15 mg Phenobarbital (Phenobarbital 15 Mg Tablet) 15 mg PO DAILY [facility] Stop: 10/31/21 09:01 Sodium Chloride (0.9 % Sodium Chloride Flush 3 Ml Syringe) 3 ml IVFLUSH QSHIFT [facility] Last Admin: 10/28/21 01:21 Dose: Not Given Thiamine HCl (Thiamine Hcl 100 Mg Tablet) 100 mg PO DAILY [facility] Last Admin: 10/28/21 10:52 Dose: 100 mg Allergies Allergies Allergy/AdvReac Type Severity Reaction Status Date / Time No Known Allergies Allergy Verified 04/25/20 11:26 Assessment & Plan Assessment & Plan (1) Alcohol use disorder, severe, dependence: Status: Acute Code(s): F10.20 - Alcohol dependence, uncomplicated Assessment and Plan: naltrexone 50mg to start tomorrow will follow up at [facility] next week I spent ____35__ minutes with the patient and/or on the patient floor today, greater than?50% of which was spent counseling/coordinating care. PMFSH Past Medical History Medical History No known health problems Social History Social History Household Members: Spouse and Children Housing: House Do you presently have visiting nurse or other home services: No Alcohol intake: current Alcohol intake frequency: 3 or more drinks per day Alcohol type: beer, wine and hard liquor Patient Tobacco Use Status: Former Tobacco user Second Hand Smoke Exposure: No service: No Current occupational status: employed
--- NOTE | 2021-10-28 14:43 | HO.PM.IMPN ---
Subjective Subjective Date of Service: 10/28/21 <JOSE ANTONIO Steele - Last Filed: 10/28/21 14:47> 10/31/21 <Sudarshan Lopes MD - Last Filed: 10/31/21 09:24> Interval History: Seen and examined this morning Follow-up for CHF, alcohol withdrawal No evidence of alcohol withdrawal at this time Reports improvement in breathing, able to ambulate with less shortness of breath Still with lower extremity edema <JOSE ANTONIO Steele - Last Filed: 10/28/21 14:47> Review of Systems Review of Systems: Yes all other systems are reviewed and are negative <JOSE ANTONIO Steele - Last Filed: 10/28/21 14:47> Constitutional Constitutional: Denies chills and Denies fever(s) <JOSE ANTONIO Steele - Last Filed: 10/28/21 14:47> Cardiovascular Cardiovascular: Denies chest pain, Denies palpitations and Denies dyspnea <JOSE ANTONIO Steele - Last Filed: 10/28/21 14:47> Respiratory Respiratory: Denies cough and Denies dyspnea <JOSE ANTONIO Steele - Last Filed: 10/28/21 14:47> Gastrointestinal Gastrointestinal: Denies abdominal pain, Denies nausea and Denies vomiting <JOSE ANTONIO Steele - Last Filed: 10/28/21 14:47> Endocrine Endocrine: Denies palpitations <JOSE ANTONIO Steele - Last Filed: 10/28/21 14:47> Physical Exam Vital Signs: Vital Signs: Last Vital Signs Temp 98.1 F 10/28/21 08:00 Pulse 108 H 10/28/21 08:00 Resp 16 10/28/21 08:00 BP 168/120 H 10/28/21 08:00 Pulse Ox 96 10/28/21 08:00 O2 Del Method 10/28/21 08:00 O2 Flow Rate 2 10/27/21 05:39 BMI result Body Mass Index 52.6 <JOSE ANTONIO Steele Last Filed: 10/28/21 14:47> Const: General: cooperative, comfortable, alert and awake <JOSE ANTONIO Steele Last Filed: 10/28/21 14:47> Nutritional Appearance: obese <JOSE ANTONIO Steele - Last Filed: 10/28/21 14:47> Orientation/consciousness: patient oriented x3 <JOSE ANTONIO Steele - Last Filed: 10/28/21 14:47> Resp: Effort & Inspection: normal respiratory effort and able to speak in complete sentences <JOSE ANTONIO Steele - Last Filed: 10/28/21 14:47> Auscultation: clear to auscultation bilaterally <JOSE ANTONIO Steele - Last Filed: 10/28/21 14:47> Cardio: Rhythm: regular rhythm <JOSE ANTONIO Steele - Last Filed: 10/28/21 14:47> Heart sounds: S1 normal heart sound present and S2 normal heart sound present <JOSE ANTONIO Steele - Last Filed: 10/28/21 14:47> GI: Palpation (GI): Soft to palpation and nontender <JOSE ANTONIO Steele - Last Filed: 10/28/21 14:47> Neuro: General: patient oriented x3 and CN's II-XI intact bilaterally <JOSE ANTONIO Steele - Last Filed: 10/28/21 14:47> Extrem: Other: b/l leg edema <JOSE ANTONIO Steele Last Filed: 10/28/21 14:47> Objective Data Active Medications Acetaminophen (Acetaminophen 325 Mg Tablet) 650 mg PO Q6H PRN PRN Reason: Pain, Mild (Pain Scale 1-3) Carvedilol (Carvedilol 3.125 Mg Tablet) 3.125 mg PO BID [facility]; Protocol Last Admin: 10/28/21 10:52 Dose: 3.125 mg Documented By: MEHRDAD Enoxaparin Sodium (Enoxaparin Sodium 40 Mg/0.4 Ml Syringe) 40 mg SUBCUT Q24H [facility] Last Admin: 10/27/21 16:30 Dose: 40 mg Documented By: DIONY Furosemide (Furosemide 40 Mg/4 Ml Vial) 40 mg IVPUSH BID@0900,1800 [facility]; Protocol Last Admin: 10/28/21 10:50 Dose: 40 mg Documented By: MEHRDAD Isosorbide Mononitrate (Isosorbide Mononitrate 30 Mg Tab.Er.24h) 30 mg PO DAILY [facility]; Protocol Last Admin: 10/28/21 10:51 Dose: 30 mg Documented By: MEHRDAD Losartan Potassium (Losartan Potassium 50 Mg Tablet) 50 mg PO DAILY [facility]; Protocol Last Admin: 10/28/21 10:52 Dose: 50 mg Documented By: MEHRDAD Multivitamins/Vitamin C (Multivitamin Tablet) 1 tab PO DAILY [facility] Last Admin: 10/28/21 10:52 Dose: 1 tab Documented By: MEHRDAD Naltrexone HCl (Naltrexone Hcl 50 Mg Tablet) 50 mg PO DAILY [facility] Ondansetron HCl (Ondansetron Hcl 4 Mg/2 Ml Vial) 4 mg IVPUSH Q8H PRN PRN Reason: Nausea and Vomiting Pharmacy Consult (Consult Rx Etoh Phenob Po Dose) 1 each MISCELLANE ONCE PRN; Protocol PRN Reason: Consult order Phenobarbital (Phenobarbital 15 Mg Tablet) 15 mg PO BID [facility] Stop: 10/29/21 21:01 Last Admin: 10/28/21 10:51 Dose: 15 mg Documented By: MEHRDAD Phenobarbital (Phenobarbital 15 Mg Tablet) 15 mg PO DAILY [facility] Stop: 10/31/21 09:01 Sodium Chloride (0.9 % Sodium Chloride Flush 3 Ml Syringe) 3 ml IVFLUSH QSHIFT [facility] Last Admin: 10/28/21 01:21 Dose: Not Given Documented By: KIRK Non-Admin Reason: Previously Administered Thiamine HCl (Thiamine Hcl 100 Mg Tablet) 100 mg PO DAILY [facility] Last Admin: 10/28/21 10:52 Dose: 100 mg Documented By: MEHRDAD <JOSE ANTONIO Steele - Last Filed: 10/28/21 14:47> Labs CBC & Chem 7: : 10/25/21 12:06 10/30/21 05:54 <JOSE ANTONIO Steele - Last Filed: 10/28/21 14:47> Labs: Laboratory Results - last 24 hr 10/28/21 06:49 Anion Gap 12 Estim Creat Clear Calc 139.9 Estimated GFR > 60 Random Glucose 110 Calcium 9.0 <JOSE ANTONIO Steele - Last Filed: 10/28/21 14:47> Assessment and Plan (1) Uncontrolled hypertension: Status: Acute <JOSE ANTONIO Steele - Last Filed: 10/28/21 14:47> (2) Acute HFrEF (heart failure with reduced ejection fraction): Status: Acute <JOSE ANTONIO Steele - Last Filed: 10/28/21 14:47> Assessment and Plan: 45yo M with history of daily, heavy alcohol use presenting with 4 wk of weight gain, leg and abdominal swelling, and progressive exertional dyspnea and orthopnea.? He is markedly fluid-overloaded on exam.? 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 # acute HFrEF # cardiomyopathy, likely r/t EtOH vs hypertension - continue diuresis with IV furosemide [negative nearly 13L so far], monitor I+O/weight/BNP/BMP - Cardiology following - started neurohormonal modulation with losartan + carvedilol, also Imdur for further preload reduction - will need outpt Cardiology f/u, also needs better BP control as well as sleep study as outpt to assess for MECHE given component of R-sided HF - outpatient ischemic workup # HTN - increase losartan, continue Imdur, carvedilol # EtOH dependence No evidence of alcohol withdrawal at this time - continue phenobarbital taper - seen by Addiction Medicine + CARE Team, giving thiamine + multivitamin # mild transaminasemia - likely fatty liver disease from EtOH vs obesity; HBV/HCV negative # morbid obesity BMI 52.6 - weight loss # VTE ppx - LMWH Attending-Dr. Lopes Requires ongoing inpatient hospitalization for further management of acute heart failure, IV Lasix, phenobarbital to prevent alcohol withdrawal <JOSE ANTONIO Steele - Last Filed: 10/28/21 14:47> Quality Stroke Does the patient have a stroke diagnosis?: No <JOSE ANTONIO Steele - Last Filed: 10/28/21 14:47> VTE Prior VTE?: No <JOSE ANTONIO Steele - Last Filed: 10/28/21 14:47> VTE Risk Level:: Medical - moderate - high <JOSE ANTONIO Steele - Last Filed: 10/28/21 14:47> VTE Device Contraindication: N/A - Device Ordered <JOSE ANTONIO Steele - Last Filed: 10/28/21 14:47> VTE Drug Contraindication: N/A - Med Ordered <JOSE ANTONIO Steele - Last Filed: 10/28/21 14:47>
[2021-10-28 14:49] VITALS: BP 152/96; PULSE 108; RESP 20; TEMP 36.7; O2SAT 94
--- NOTE | 2021-10-28 15:18 | MHC.RECOVRN ---
Pt has appt at the [facility] on 11/03 at 4PM. CM aware.
[2021-10-28 15:36] VITALS: BP 136/89; PULSE 95; RESP 18; TEMP 37.1; O2SAT 94
[2021-10-28] MEDS: Enoxaparin Sodium 40 MG/0.4 ML SYRINGE SUBCUT (19:36)
[2021-10-28] MEDS: 0.9 % Sodium Chloride Flush 3 ML SYRINGE IVFLUSH ×3 (19:38→20:13)
[2021-10-28 20:00] VITALS: BP 182/104; PULSE 103; RESP 18; TEMP 37.1; O2SAT 95
[2021-10-28 23:30] VITALS: BP 134/80; PULSE 108; RESP 18; TEMP 36.9; O2SAT 93
[2021-10-29 03:19] VITALS: BP 141/78; PULSE 100; RESP 18; TEMP 36.6; O2SAT 94
[2021-10-29 06:00] VITALS: BMI 45.8
[2021-10-29 07:12] LABS: B Type Natriuretic Peptide 309 pg/mL (<100)
[2021-10-29 07:13] LABS: Anion Gap 12 (12-20); Blood Urea Nitrogen 12 mg/dL (9-16); Carbon Dioxide 35 mmol/L (22-29); Chloride 95 mmol/L (96-108); Creatinine Clr Calc Pharmacy 138.6; Estimated Glomerular Filt Rate > 60; Glucose Random 114 mg/dL (60-115); Potassium 4.2 mmol/L (3.3-5.1); Sodium 138 mmol/L (135-145)
[2021-10-29 07:31] VITALS: BP 154/93; PULSE 103; RESP 22; TEMP 36.7; O2SAT 91
[2021-10-29] MEDS: Furosemide 40 MG/4 ML VIAL IVPUSH ×2 (10:12→16:59)
[2021-10-29] MEDS: carvediloL 3.125 MG TABLET 6.25 MG PO ×2 (10:13→20:07)
[2021-10-29] MEDS: Isosorbide Mononitrate 30 MG TAB.ER.24H PO (10:13)
[2021-10-29] MEDS: Thiamine HCL 100 MG TABLET PO (10:14)
[2021-10-29] MEDS: 0.9 % Sodium Chloride Flush 3 ML SYRINGE IVFLUSH ×3 (10:14→20:08)
[2021-10-29] MEDS: Multivitamin TABLET 1 TAB PO (10:14)
[2021-10-29] MEDS: Naltrexone HCl 50 MG TABLET PO (10:14)
[2021-10-29] MEDS: Losartan Potassium 50 MG TABLET PO ×2 (10:15→20:07)
[2021-10-29] MEDS: PHENobarbitaL 15 MG TABLET PO ×2 (10:17→20:06)
--- NOTE | 2021-10-29 11:14 | PM.PNCARD ---
Subjective Subjective Date of Service: 10/29/21 Principal diagnosis: acute CHF, uncontrolled HTN Interval history: Feeling better. Still volume overloaded. Physical Exam Vital Signs: Last Vital Signs Temp 98.0 F 10/29/21 07:31 Pulse 103 H 10/29/21 07:31 Resp 22 H 10/29/21 07:31 BP 154/93 H 10/29/21 07:31 Pulse Ox 91 L 10/29/21 07:31 O2 Del Method 10/29/21 07:31 O2 Flow Rate 0 10/29/21 03:19 BMI result Body Mass Index 45.8 GENERAL APPEARANCE: in no acute distress, pleasant. NECK: no carotid bruit, elevated jugular venous distention. SKIN: no suspicious lesions, warm and dry. HEART: no murmurs, regular rate and rhythm. Tachycardic. LUNGS: clear to auscultation bilaterally. ABDOMEN: soft, nontender. EXTREMITIES: 1+ edema. PERIPHERAL PULSES: equal. NEUROLOGIC: No gross deficits, AAO X 3 Objective Labs and Meds Result diagrams: 10/25/21 12:06 10/29/21 06:27 Lab results: Laboratory Results - last 24 hr 10/29/21 10/29/21 06:27 06:27 Sodium 138 Potassium 4.2 Chloride 95 L Carbon Dioxide 35 H Anion Gap 12 BUN 12 Creatinine 0.79 Estim Creat Clear Calc 138.6 Estimated GFR > 60 Random Glucose 114 Calcium 9.0 B-Natriuretic Peptide 309 H Progress Note: A&P Assessment and plan (1) Acute HFrEF (heart failure with reduced ejection fraction): Status: Acute Plan Pleasant 45-year-old gentleman presenting with new onset congestive heart failure in the setting of alcohol use and hypertension. Blood pressure is difficult to control and we are titrating medications slowly. He is on losartan 50 mg twice a day, Coreg 6.25 mg twice a day and isosorbide 30 mg daily. I am adding spironolactone 25 mg once a day. We will monitor electrolytes closely. He is on 40 mg IV b.i.d. Lasix and is diuresing well. I think he should stay on IV diuretics today. We will follow along with you. Thank you for allowing me to participate in the care of your patient. Please feel free to contact me if you have any questions. Time Spent With Patient Time: Total time spent is greater than 50% in coordination of care (as documented) at patient's floor/unit and/or counseling patient: Progress Note: Quality Stroke Does the patient have a stroke diagnosis?: No Procedures Date of Service Date of Service: 10/29/21
--- NOTE | 2021-10-29 11:49 | HO.PM.IMPN ---
Subjective Subjective Date of Service: 10/29/21 Interval History: Seen and examined this morning Follow-up for CHF, alcohol withdrawal Diuresing well, blood pressure still elevated Continues to have lower extremity edema, breathing improving slowly Review of Systems Review of Systems: Yes all other systems are reviewed and are negative Constitutional Constitutional: Denies chills and Denies fever(s) Cardiovascular Cardiovascular: Denies chest pain, Denies palpitations, Denies dyspnea and Reports dyspnea on exertion Respiratory Respiratory: Denies cough, Denies dyspnea and Reports dyspnea on exertion Gastrointestinal Gastrointestinal: Denies abdominal pain, Denies nausea and Denies vomiting Endocrine Endocrine: Denies palpitations Physical Exam Vital Signs: Vital Signs: Last Vital Signs Temp 98.0 F 10/29/21 07:31 Pulse 103 H 10/29/21 07:31 Resp 22 H 10/29/21 07:31 BP 154/93 H 10/29/21 07:31 Pulse Ox 91 L 10/29/21 07:31 O2 Del Method 10/29/21 07:31 O2 Flow Rate 0 10/29/21 03:19 BMI result Body Mass Index 45.8 Const: General: cooperative, comfortable, alert and awake Nutritional Appearance: obese Orientation/consciousness: patient oriented x3 Resp: Effort & Inspection: normal respiratory effort and able to speak in complete sentences Auscultation: clear to auscultation bilaterally Cardio: Jugular venous distension: JVD Rhythm: regular rhythm Heart sounds: S1 normal heart sound present and S2 normal heart sound present GI: Palpation (GI): Soft to palpation and nontender Neuro: General: patient oriented x3 and CN's II-XI intact bilaterally Extrem: Other: b/l leg edema Objective Data Active Medications Acetaminophen (Acetaminophen 325 Mg Tablet) 650 mg PO Q6H PRN PRN Reason: Pain, Mild (Pain Scale 1-3) Carvedilol (Carvedilol 3.125 Mg Tablet) 6.25 mg PO BID [facility]; Protocol Last Admin: 10/29/21 10:13 Dose: 6.25 mg Documented By: ORIANA Enoxaparin Sodium (Enoxaparin Sodium 40 Mg/0.4 Ml Syringe) 40 mg SUBCUT Q24H [facility] Last Admin: 10/28/21 19:36 Dose: 40 mg Documented By: MEHRDAD Furosemide (Furosemide 40 Mg/4 Ml Vial) 40 mg IVPUSH BID@0900,1800 [facility]; Protocol Last Admin: 10/29/21 10:12 Dose: 40 mg Documented By: ORIANA Isosorbide Mononitrate (Isosorbide Mononitrate 30 Mg Tab.Er.24h) 30 mg PO DAILY [facility]; Protocol Last Admin: 10/29/21 10:13 Dose: 30 mg Documented By: ORIANA Losartan Potassium (Losartan Potassium 50 Mg Tablet) 50 mg PO BID [facility]; Protocol Last Admin: 10/29/21 10:15 Dose: 50 mg Documented By: ORIANA Multivitamins/Vitamin C (Multivitamin Tablet) 1 tab PO DAILY [facility] Last Admin: 10/29/21 10:14 Dose: 1 tab Documented By: ORIANA Naltrexone HCl (Naltrexone Hcl 50 Mg Tablet) 50 mg PO DAILY [facility] Last Admin: 10/29/21 10:14 Dose: 50 mg Documented By: ORIANA Ondansetron HCl (Ondansetron Hcl 4 Mg/2 Ml Vial) 4 mg IVPUSH Q8H PRN PRN Reason: Nausea and Vomiting Pharmacy Consult (Consult Rx Etoh Phenob Po Dose) 1 each MISCELLANE ONCE PRN; Protocol PRN Reason: Consult order Phenobarbital (Phenobarbital 15 Mg Tablet) 15 mg PO BID [facility] Stop: 10/29/21 21:01 Last Admin: 10/29/21 10:17 Dose: 15 mg Documented By: ORIANA Phenobarbital (Phenobarbital 15 Mg Tablet) 15 mg PO DAILY [facility] Stop: 10/31/21 09:01 Sodium Chloride (0.9 % Sodium Chloride Flush 3 Ml Syringe) 3 ml IVFLUSH QSHIFT [facility] Last Admin: 10/29/21 10:14 Dose: 3 ml Documented By: ORIANA Spironolactone (Spironolactone 25 Mg Tablet) 25 mg PO DAILY [facility]; Protocol Thiamine HCl (Thiamine Hcl 100 Mg Tablet) 100 mg PO DAILY [facility] Last Admin: 10/29/21 10:14 Dose: 100 mg Documented By: ORIANA Labs CBC & Chem 7: 10/25/21 12:06 10/29/21 06:27 Labs: Laboratory Results - last 24 hr 10/29/21 10/29/21 06:27 06:27 Anion Gap 12 Estim Creat Clear Calc 138.6 Estimated GFR > 60 Random Glucose 114 Calcium 9.0 B-Natriuretic Peptide 309 H Assessment and Plan (1) Uncontrolled hypertension: Status: Acute (2) Acute HFrEF (heart failure with reduced ejection fraction): Status: Acute Plan 45yo M with history of daily, heavy alcohol use presenting with 4 wk of weight gain, leg and abdominal swelling, and progressive exertional dyspnea and orthopnea.? He is markedly fluid-overloaded on exam.? 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 # acute HFrEF # cardiomyopathy, likely r/t EtOH vs hypertension still fluid overloaded, BNP trending down - continue diuresis with IV furosemide [negative nearly 16L so far], monitor I+O/weight/BNP/BMP - Cardiology following - started neurohormonal modulation with losartan + carvedilol, also Imdur for further preload reduction. Meds being titrated up - spironolactone added - will need outpt Cardiology f/u, also needs better BP control as well as sleep study as outpt to assess for MECHE given component of R-sided HF - outpatient ischemic workup # HTN difficult to control blood pressure - continue losartan, Imdur, carvedilol - spironolactone added # EtOH dependence No evidence of alcohol withdrawal at this time - continue phenobarbital taper - seen by Addiction Medicine + CARE Team, giving thiamine + multivitamin - started on naltrexone # mild transaminasemia - likely fatty liver disease from EtOH vs obesity; HBV/HCV negative # morbid obesity BMI 52.6 - weight loss # VTE ppx - LMWH Attending-Dr. Vanegas Requires ongoing inpatient hospitalization for further management of acute heart failure, IV Lasix, phenobarbital to prevent alcohol withdrawal Quality Stroke Does the patient have a stroke diagnosis?: No VTE Prior VTE?: No VTE Risk Level:: Medical - moderate - high VTE Device Contraindication: N/A - Device Ordered VTE Drug Contraindication: N/A - Med Ordered
[2021-10-29 12:00] VITALS: BP 125/72; PULSE 92; RESP 20; TEMP 36.7; O2SAT 94
[2021-10-29] MEDS: Spironolactone 25 MG TABLET PO (12:23)
[2021-10-29 15:52] VITALS: BP 148/91; PULSE 92; RESP 19; TEMP 37.1; O2SAT 95
[2021-10-29] MEDS: Enoxaparin Sodium 40 MG/0.4 ML SYRINGE SUBCUT (16:59)
[2021-10-29 19:36] VITALS: BP 147/89; PULSE 87; RESP 18; TEMP 37; O2SAT 98
[2021-10-29 23:24] VITALS: BP 151/82; PULSE 84; RESP 20; TEMP 36.7; O2SAT 95
[2021-10-30 03:29] VITALS: BP 143/84; PULSE 91; RESP 16; TEMP 36.8; O2SAT 91
[2021-10-30 06:00] VITALS: BMI 45.2
[2021-10-30 07:23] LABS: Anion Gap 14 (12-20); Blood Urea Nitrogen 14 mg/dL (9-16); Calcium 9.2 mg/dL (8.4-10.2); Carbon Dioxide 33 mmol/L (22-29); Chloride 96 mmol/L (96-108); Creatinine Clr Calc Pharmacy 135.9; Estimated Glomerular Filt Rate > 60; Glucose Random 102 mg/dL (60-115); Magnesium 2.4 mg/dL (1.6-2.6); Potassium 4.7 mmol/L (3.3-5.1); Sodium 138 mmol/L (135-145)
[2021-10-30 08:00] VITALS: BP 169/107; PULSE 106; RESP 20; TEMP 36.7; O2SAT 95
[2021-10-30] MEDS: Losartan Potassium 50 MG TABLET PO ×2 (09:55→20:01)
[2021-10-30] MEDS: 0.9 % Sodium Chloride Flush 3 ML SYRINGE IVFLUSH ×3 (09:55→20:02)
[2021-10-30] MEDS: Thiamine HCL 100 MG TABLET PO (09:56)
[2021-10-30] MEDS: Isosorbide Mononitrate 30 MG TAB.ER.24H PO (09:56)
[2021-10-30] MEDS: Spironolactone 25 MG TABLET PO (09:58)
[2021-10-30] MEDS: Multivitamin TABLET 1 TAB PO (09:58)
[2021-10-30] MEDS: Naltrexone HCl 50 MG TABLET PO (10:03)
[2021-10-30] MEDS: PHENobarbitaL 15 MG TABLET PO (10:04)
[2021-10-30] MEDS: Furosemide 40 MG/4 ML VIAL IVPUSH ×2 (10:04→16:46)
[2021-10-30] MEDS: carvediloL 3.125 MG TABLET 6.25 MG PO (10:07)
[2021-10-30] MEDS: carvediloL 12.5 MG TABLET PO ×2 (11:09→20:01)
--- NOTE | 2021-10-30 11:59 | PM.PNCARD ---
Subjective Subjective Date of Service: 10/30/21 Principal diagnosis: acute CHF, uncontrolled HTN Interval history: Feeling better. Ambulating and has no shortness of breath. Blood pressure continues to be elevated. Physical Exam Vital Signs: Last Vital Signs Temp 98.1 F 10/30/21 08:00 Pulse 106 H 10/30/21 08:00 Resp 20 10/30/21 08:00 BP 169/107 H 10/30/21 08:00 Pulse Ox 95 10/30/21 08:00 O2 Del Method 10/30/21 08:00 O2 Flow Rate 0 10/29/21 03:19 BMI result Body Mass Index 45.2 GENERAL APPEARANCE: in no acute distress, pleasant. NECK: no carotid bruit, no jugular venous distention. SKIN: no suspicious lesions, warm and dry. HEART: no murmurs, regular rate and rhythm. Tachycardic. LUNGS: clear to auscultation bilaterally. ABDOMEN: soft, nontender. EXTREMITIES: Mild edema. PERIPHERAL PULSES: equal. NEUROLOGIC: No gross deficits, AAO X 3 Objective Labs and Meds Result diagrams: 10/25/21 12:06 10/30/21 05:54 Lab results: Laboratory Results - last 24 hr 10/30/21 05:54 Sodium 138 Potassium 4.7 Chloride 96 Carbon Dioxide 33 H Anion Gap 14 BUN 14 Creatinine 0.80 Estim Creat Clear Calc 135.9 Estimated GFR > 60 Random Glucose 102 Calcium 9.2 Magnesium 2.4 Progress Note: A&P Assessment and plan (1) Acute HFrEF (heart failure with reduced ejection fraction): Status: Acute (2) Alcohol use disorder, severe, dependence: Status: Acute Plan 45-year-old gentleman with background of hypertension and alcohol use presenting for new diagnosis of congestive heart failure. Diuresing and overall he is reaching euvolemia. I think he can get IV diuretics today and can be changed to oral Lasix tomorrow. I would start him on Lasix 40 mg twice a day. Blood pressure control is suboptimal. I am increasing his carvedilol to 12.5 mg twice a day. Can add amlodipine 5 mg if he continues to be hypertensive in the evening. If blood pressure improving tomorrow then potentially can go home and follow up with us as outpatient. Will repeat echocardiography in few months. Thank you for allowing me to participate in the care of your patient. Please feel free to contact me if you have any questions. Time Spent With Patient Time: Total time spent is greater than 50% in coordination of care (as documented) at patient's floor/unit and/or counseling patient: Progress Note: Quality Stroke Does the patient have a stroke diagnosis?: No Procedures Date of Service Date of Service: 10/30/21
[2021-10-30 12:00] VITALS: BP 112/64; PULSE 84; RESP 20; TEMP 36.7; O2SAT 94
--- NOTE | 2021-10-30 13:09 | HO.PM.IMPN ---
Subjective Subjective Date of Service: 10/30/21 Interval History: Seen and examined this morning Follow-up for CHF No overnight events Breathing well, no orthopnea, sob Review of Systems Review of Systems: Yes all other systems are reviewed and are negative Constitutional Constitutional: Denies chills and Denies fever(s) Cardiovascular Cardiovascular: Denies chest pain, Denies palpitations and Denies dyspnea Respiratory Respiratory: Denies cough and Denies dyspnea Gastrointestinal Gastrointestinal: Denies abdominal pain, Denies nausea and Denies vomiting Endocrine Endocrine: Denies palpitations Physical Exam Vital Signs: Vital Signs: Last Vital Signs Temp 98.0 F 10/30/21 12:00 Pulse 84 10/30/21 12:00 Resp 20 10/30/21 12:00 BP 112/64 10/30/21 12:00 Pulse Ox 94 10/30/21 12:00 O2 Del Method 10/30/21 12:00 O2 Flow Rate 0 10/29/21 03:19 BMI result Body Mass Index 45.2 Const: General: cooperative, comfortable, alert and awake Nutritional Appearance: obese Orientation/consciousness: patient oriented x3 Resp: Effort & Inspection: normal respiratory effort and able to speak in complete sentences Auscultation: clear to auscultation bilaterally Cardio: Jugular venous distension: JVD Rhythm: regular rhythm Heart sounds: S1 normal heart sound present and S2 normal heart sound present GI: Palpation (GI): Soft to palpation and nontender Neuro: General: patient oriented x3 and CN's II-XI intact bilaterally Extrem: Other: b/l leg edema improving Objective Data Active Medications Acetaminophen (Acetaminophen 325 Mg Tablet) 650 mg PO Q6H PRN PRN Reason: Pain, Mild (Pain Scale 1-3) Carvedilol (Carvedilol 12.5 Mg Tablet) 12.5 mg PO BID [facility]; Protocol Last Admin: 10/30/21 11:09 Dose: 12.5 mg Documented By: ORIANA Enoxaparin Sodium (Enoxaparin Sodium 40 Mg/0.4 Ml Syringe) 40 mg SUBCUT Q24H [facility] Last Admin: 10/29/21 16:59 Dose: 40 mg Documented By: ORIANA Furosemide (Furosemide 40 Mg/4 Ml Vial) 40 mg IVPUSH BID@0900,1800 [facility]; Protocol Last Admin: 10/30/21 10:04 Dose: 40 mg Documented By: ORIANA Isosorbide Mononitrate (Isosorbide Mononitrate 30 Mg Tab.Er.24h) 30 mg PO DAILY [facility]; Protocol Last Admin: 10/30/21 09:56 Dose: 30 mg Documented By: ORIANA Losartan Potassium (Losartan Potassium 50 Mg Tablet) 50 mg PO BID [facility]; Protocol Last Admin: 10/30/21 09:55 Dose: 50 mg Documented By: ORIANA Multivitamins/Vitamin C (Multivitamin Tablet) 1 tab PO DAILY [facility] Last Admin: 10/30/21 09:58 Dose: 1 tab Documented By: ORIANA Naltrexone HCl (Naltrexone Hcl 50 Mg Tablet) 50 mg PO DAILY [facility] Last Admin: 10/30/21 10:03 Dose: 50 mg Documented By: ORIANA Ondansetron HCl (Ondansetron Hcl 4 Mg/2 Ml Vial) 4 mg IVPUSH Q8H PRN PRN Reason: Nausea and Vomiting Pharmacy Consult (Consult Rx Etoh Phenob Po Dose) 1 each MISCELLANE ONCE PRN; Protocol PRN Reason: Consult order Phenobarbital (Phenobarbital 15 Mg Tablet) 15 mg PO DAILY [facility] Stop: 10/31/21 09:01 Last Admin: 10/30/21 10:04 Dose: 15 mg Documented By: ORIANA Sodium Chloride (0.9 % Sodium Chloride Flush 3 Ml Syringe) 3 ml IVFLUSH QSHIFT [facility] Last Admin: 10/30/21 09:55 Dose: 3 ml Documented By: ORIANA Spironolactone (Spironolactone 25 Mg Tablet) 25 mg PO DAILY [facility]; Protocol Last Admin: 10/30/21 09:58 Dose: 25 mg Documented By: ORIANA Thiamine HCl (Thiamine Hcl 100 Mg Tablet) 100 mg PO DAILY [facility] Last Admin: 10/30/21 09:56 Dose: 100 mg Documented By: ORIANA Labs CBC & Chem 7: 10/25/21 12:06 10/30/21 05:54 Labs: Laboratory Results - last 24 hr 10/30/21 05:54 Anion Gap 14 Estim Creat Clear Calc 135.9 Estimated GFR > 60 Random Glucose 102 Calcium 9.2 Magnesium 2.4 Assessment and Plan (1) Acute HFrEF (heart failure with reduced ejection fraction): Status: Acute Plan 45yo M with history of daily, heavy alcohol use presenting with 4 wk of weight gain, leg and abdominal swelling, and progressive exertional dyspnea and orthopnea.? He is markedly fluid-overloaded on exam.? 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 acute HFrEF cardiomyopathy, likely r/t EtOH vs hypertension still fluid overloaded, BNP trending down - continue diuresis with IV furosemide [negative 16L so far], monitor I+O/weight/BNP/BMP. Transition to oral Lasix in the morning - Cardiology following - started neurohormonal modulation with losartan + carvedilol, also Imdur for further preload reduction. Meds being titrated up - spironolactone also added - will need outpt Cardiology f/u, as well as sleep study as outpt to assess for MECHE given component of R-sided HF. possible outpatient ischemic workup HTN blood pressure improving - continue losartan, Imdur, carvedilol, spironolactone - all new during this admission - if blood pressure remains high would add Norvasc EtOH dependence No evidence of alcohol withdrawal at this time - continue phenobarbital taper - seen by Addiction Medicine + CARE Team, giving thiamine + multivitamin - started on naltrexone mild transaminasemia - likely fatty liver disease from EtOH vs obesity; HBV/HCV negative morbid obesity BMI 52.6 - weight loss VTE ppx - [facility] Attending-Dr. Vanegas Requires ongoing inpatient hospitalization for further management of acute heart failure, IV Lasix, phenobarbital to prevent alcohol withdrawal Quality Stroke Does the patient have a stroke diagnosis?: No VTE Prior VTE?: No VTE Risk Level:: Medical - moderate - high VTE Device Contraindication: N/A - Device Ordered VTE Drug Contraindication: N/A - Med Ordered
--- NOTE | 2021-10-30 14:20 | P.DS_ITS ---
DS: Providers Provider Date of admission: 10/25/21 17:53 Primary care physician: Unknown Physician Consults: 10/25/21 17:16 Addiction Medicine Routine Consulting Provider: Marilyn Qureshi Reason for consultation: etoh Consult to Cardiology Routine Consulting Provider: Clinton Fernandez Reason for consultation: suspected cardiomyopathy Consult to Care Team Routine Comment: Reason for consultation: etoh DS: Diagnosis Discharge Diagnosis (1) Acute HFrEF (heart failure with reduced ejection fraction): Status: Acute DS: Summary Hospital Course Hospital Course: From H&P on day of admission 45yo M with no diagnosed chronic conditions and no PCP who presents to the ED with approximately 4 wk of worsening swelling of his abdomen and legs, progressing to the point where he is becoming short of breath with activity and with laying flat.? He estimates his weight is up 40 lb.? No chest pain.? No cough.? No fever.? He drinks 6 servings of liquor daily and cannot recall a day in the last year when he did not drink.? Last drink was 10- 11pm last night.? In the ED, he was noted to have generalized anasarca and was hypertensive and tachycardic, as high as 228/134 and 122; currently 193/124 and 115.? CXR showed cardiomegaly and CT of the abdomen and pelvis showed anasarca, subcutaneous soft tissue swelling, and a small amount of ascites.? BNP 1095.? He was given 40 mg of IV furosemide and started on phenobarbital taper.? He takes no medications.? He does not smoke or use other substances. Discharge diagnoses Acute heart failure with reduced ejection fraction Uncontrolled hypertension Alcohol dependence with alcohol withdrawal Elevated liver enzymes Morbid obesity Probable sleep apnea Tobacco dependence Hospital course by problem: acute HFrEF/cardiomyopathy, likely r/t EtOH vs hypertension Patient was admitted to the hospital with fluid overload. He was started on IV diuresis. He was seen in consultation by Cardiology. ECHO from October 26 showing moderately reduced left ventricular systolic function with LVEF of 35-40%. Increased left ventricular wall thickness and moderate global hypokinesis. Mild to moderate pulmonary hypertension. He has diuresed over 16 L since admission. He was started on losartan and carvedilol for neurohormonal modulation as well as Imdur for further preload reduction. He was also started on spironolactone. He will need outpt Cardiology f/u, as well as sleep study as outpt to assess for MECHE given component of R-sided HF. He will likely need outpatient ischemic workup. HTN. Blood pressure was elevated on arrival and was difficult to control. Alcohol withdrawal may have been playing a role. He was started on multiple medications during this admission and his blood pressure is now under control. EtOH dependence. Patient was started on phenobarbital protocol to treat alcohol withdrawal. He was supplemented with thiamine and multivitamin. He was seen in consultation by addiction medicine and started on naltrexone. He is encouraged to completely abstain from alcohol. Elevated liver enzymes. likely related to fatty liver disease from EtOH vs obesity; HBV/HCV negative. Recommend outpatient follow-up. Morbid obesity BMI 45.2. Weight loss is encouraged. Probable MECHE. Patient encouraged to follow-up with PCP as outpatient for sleep study Tobacco dependence. Patient reports recently quitting smoking. Recommend to continue nicotine replacement therapy. Time Spent with Patient Time attestation: Total time spent providing and/or coordinating discharge services: Discharge coordination time: Greater than 30 minutes Quality: Safe Use of Opioids Does Pt have an Active Cancer Diagnosis on the Problem List?: No Quality: Stroke Does the patient have a stroke diagnosis?: No Physical Exam Vital Signs: Vital Signs: Last Vital Signs Temp 98.0 F 10/30/21 12:00 Pulse 84 10/30/21 12:00 Resp 20 10/30/21 12:00 BP 112/64 10/30/21 12:00 Pulse Ox 94 10/30/21 12:00 O2 Del Method 10/30/21 12:00 O2 Flow Rate 0 10/29/21 03:19 BMI result Body Mass Index 45.2 DS: Data Data Completed and Pending Labs on day of discharge: Laboratory Results - last 24 hr 10/30/21 05:54 Sodium 138 Potassium 4.7 Chloride 96 Carbon Dioxide 33 H Anion Gap 14 BUN 14 Creatinine 0.80 Estim Creat Clear Calc 135.9 Estimated GFR > 60 Random Glucose 102 Calcium 9.2 Magnesium 2.4 Discharge Plan Discharge Anticipated Discharge Date/Time: 10/31/21 09:23 Patient Disposition: Home, Self-Care Discharge Diagnosis: acute HFrEF Uncontrolled hypertension Alcohol dependence elevated liver enzymes Referrals: Clinton Fernandez MD [Physician] - 1 Week Physician,Unknown J [Primary Care Provider] - 1 Week Discharge Medications: New naltrexone 50 mg tablet 50 mg PO DAILY Qty: 30 1RF isosorbide mononitrate 30 mg Tablet Extended Release 24 Hr 30 mg PO DAILY 30 Days Qty: 30 0RF Protocol: Hold for SBP< HOLD for SBP < : 90 spironolactone 25 mg Tablet 25 mg PO DAILY 30 Days Qty: 30 0RF Protocol: Hold for SBP< HOLD for SBP < : 90 furosemide 40 mg Tablet 40 mg PO BID@0900,1800 30 Days Qty: 60 0RF Protocol: Hold for SBP< HOLD for SBP < : 90 thiamine mononitrate (vit B1) 100 mg Tablet 100 mg PO DAILY 30 Days Qty: 30 0RF carvedilol [Coreg] 25 mg tablet 25 mg PO BID Qty: 60 1RF Rx Instructions: must administer with a meal/food Entresto 97-103 mg tablet 1 tab PO BID Qty: 60 0RF Continued nicotine 21 mg/24 hr Patch 24 Hour 1 patch TRANSDERMAL DAILY Discharge Orders: Discharge Order (Routine); Ordered 10/31/21 Ordered By: Sudarshan Lopes Diet: low salt diet Activity on Discharge: As tolerated Stand Alone Forms: Patient Portal Discharge page, Work/School Release Care Plan Goals: See below Health Concerns: High blood pressure Alcohol dependence Elevated liver enzymes Plan of Treatment: You have been started on multiple new medications for diagnosis of heart failure and uncontrolled high blood pressure, please take as prescribed Recommend follow low-salt diet and limit fluid intake as discussed Call to schedule follow-up appointment with PCP to monitor blood pressure and repeat liver enzymes in the near future You will need to have sleep study to evaluate for sleep apnea Recommend to completely abstain from alcohol use, addiction medicine has started you on naltrexone, please take as prescribed Call to schedule follow-up appointment with Cardiology Assessment: See discharge summary Discharge Date/Time: 10/31/21 11:00
[2021-10-30 15:41] VITALS: BP 139/74; PULSE 87; RESP 18; TEMP 37.1; O2SAT 92
[2021-10-30] MEDS: Enoxaparin Sodium 40 MG/0.4 ML SYRINGE SUBCUT (16:47)
[2021-10-30 20:02] VITALS: BP 134/67; PULSE 89
[2021-10-30 23:11] VITALS: BP 131/63; PULSE 82; RESP 19; TEMP 36.4; O2SAT 95
[2021-10-31 03:23] VITALS: BP 124/68; PULSE 93; RESP 18; TEMP 36.4; O2SAT 92
[2021-10-31 06:00] VITALS: BMI 45.0
[2021-10-31 08:00] VITALS: BP 163/95; PULSE 100; RESP 20; TEMP 36.5; O2SAT 96
[2021-10-31] MEDS: Furosemide 40 MG TABLET PO (09:07)
[2021-10-31] MEDS: PHENobarbitaL 15 MG TABLET PO (09:07)
[2021-10-31] MEDS: Thiamine HCL 100 MG TABLET PO (09:07)
[2021-10-31] MEDS: Isosorbide Mononitrate 30 MG TAB.ER.24H PO (09:07)
[2021-10-31] MEDS: Spironolactone 25 MG TABLET PO (09:07)
[2021-10-31] MEDS: Losartan Potassium 50 MG TABLET PO (09:08)
[2021-10-31] MEDS: Naltrexone HCl 50 MG TABLET PO (09:08)
[2021-10-31] MEDS: Multivitamin TABLET 1 TAB PO (09:08)
[2021-10-31] MEDS: carvediloL 12.5 MG TABLET PO ×2 (09:08→11:05)
[2021-10-31] MEDS: 0.9 % Sodium Chloride Flush 3 ML SYRINGE IVFLUSH (09:08)
--- NOTE | 2021-10-31 09:24 | P.DS_ITS ---
DS: Providers Provider Date of Service: 10/31/21 Date of admission: 10/25/21 17:53 Primary care physician: Unknown Physician Consults: 10/25/21 17:16 Addiction Medicine Routine Consulting Provider: Marilyn Qureshi Reason for consultation: etoh Consult to Cardiology Routine Consulting Provider: Clinton Fernandez Reason for consultation: suspected cardiomyopathy Consult to Care Team Routine Comment: Reason for consultation: etoh DS: Diagnosis Discharge Diagnosis (1) Uncontrolled hypertension: Status: Acute (2) Acute HFrEF (heart failure with reduced ejection fraction): Status: Acute DS: Summary Hospital Course Hospital Course: From H&P on day of admission 45yo M with no diagnosed chronic conditions and no PCP who presents to the ED with approximately 4 wk of worsening swelling of his abdomen and legs, progressing to the point where he is becoming short of breath with activity and with laying flat.? He estimates his weight is up 40 lb.? No chest pain.? No cough.? No fever.? He drinks 6 servings of liquor daily and cannot recall a day in the last year when he did not drink.? Last drink was 10- 11pm last night.? In the ED, he was noted to have generalized anasarca and was hypertensive and tachycardic, as high as 228/134 and 122; currently 193/124 and 115.? CXR showed cardiomegaly and CT of the abdomen and pelvis showed anasarca, subcutaneous soft tissue swelling, and a small amount of ascites.? BNP 1095.? He was given 40 mg of IV furosemide and started on phenobarbital taper.? He takes no medications.? He does not smoke or use other substances. Discharge diagnoses Acute heart failure with reduced ejection fraction Uncontrolled hypertension Alcohol dependence with alcohol withdrawal Elevated liver enzymes Morbid obesity Probable sleep apnea Tobacco dependence Hospital course by problem: acute HFrEF/cardiomyopathy, likely r/t EtOH vs hypertension Patient was admitted to the hospital with fluid overload. He was started on IV diuresis. He was seen in consultation by Cardiology. ECHO from October 26 showing moderately reduced left ventricular systolic function with LVEF of 35-40%. Increased left ventricular wall thickness and moderate global hypokinesis. Mild to moderate pulmonary hypertension. He has diuresed over 16 L since admission. He was started on losartan and carvedilol for neurohormonal modulation as well a s Imdur for further preload reduction. He was also started on spironolactone. He will need outpt Cardiology f/u, as well as sleep study as outpt to assess for MECHE given component of R-sided HF. He will likely need outpatient ischemic workup. HTN. Blood pressure was elevated on arrival and was difficult to control. Alcohol withdrawal may have been playing a role. He was started on multiple med ications during this admission and his blood pressure is now under control. EtOH dependence. Patient was started on phenobarbital protocol to treat alcohol withdrawal. He was supplemented with thiamine and multivitamin. He was seen in consultation by addiction medicine and started on naltrexone. He is encouraged to completely abstain from alcohol. Elevated liver enzymes. likely related to fatty liver disease from EtOH vs obesity; HBV/HCV negative. Recommend outpatient follow-up. Morbid obesity BMI 45.2. Weight loss is encouraged. Probable MECHE. Patient encouraged to follow-up with PCP as outpatient for sleep study Tobacco dependence. Patient reports recently quitting smoking. Recommend to continue nicotine replacement therapy. Time Spent with Patient Time attestation: Total time spent providing and/or coordinating discharge services: Discharge coordination time: Greater than 30 minutes Quality: Safe Use of Opioids Does Pt have an Active Cancer Diagnosis on the Problem List?: No Quality: Stroke Does the patient have a stroke diagnosis?: No Physical Exam Vital Signs: Vital Signs: Last Vital Signs Temp 97.7 F 10/31/21 08:00 Pulse 100 10/31/21 08:00 Resp 20 10/31/21 08:00 BP 163/95 H 10/31/21 08:00 Pulse Ox 96 10/31/21 08:00 O2 Del Method 10/31/21 08:00 O2 Flow Rate 0 10/29/21 03:19 BMI result Body Mass Index 45.0 Const: Other: General: AO X 3, no acute distress Resp: CTA bilateral CVS: S1,S2,RRR, no leg edema GI: +BS, NT, no distention Skin: No rash Neuro: motor grossly intact Psych: appropriate affect Discharge Plan Discharge Anticipated Discharge Date/Time: 10/31/21 09:23 Patient Disposition: Hospice - Home Discharge Diagnosis: acute HFrEF Uncontrolled hypertension Alcohol dependence elevated liver enzymes Referrals: Clinton Fernandez MD [Physician] - 1 Week Physician,Unknown J [Primary Care Provider] - 1 Week Discharge Medications: New carvedilol 12.5 mg Tablet 12.5 mg PO BID 30 Days Qty: 60 0RF Protocol: Hold for SBP/HR < HOLD for SBP < : 90 HOLD for HR < : 60 isosorbide mononitrate 30 mg Tablet Extended Release 24 Hr 30 mg PO DAILY 30 Days Qty: 30 0RF Protocol: Hold for SBP< HOLD for SBP < : 90 losartan 50 mg Tablet 50 mg PO BID 30 Days Qty: 60 0RF Protocol: Hold for SBP< HOLD for SBP < : 90 spironolactone 25 mg Tablet 25 mg PO DAILY 30 Days Qty: 30 0RF Protocol: Hold for SBP< HOLD for SBP < : 90 furosemide 40 mg Tablet 40 mg PO BID@0900,1800 30 Days Qty: 60 0RF Protocol: Hold for SBP< HOLD for SBP < : 90 thiamine mononitrate (vit B1) 100 mg Tablet 100 mg PO DAILY 30 Days Qty: 30 0RF naltrexone 50 mg tablet 50 mg PO DAILY Qty: 30 1RF Continued nicotine 21 mg/24 hr Patch 24 Hour 1 patch TRANSDERMAL DAILY Discharge Orders: Discharge Order (Routine); Ordered 10/31/21 Ordered By: Sudarshan Lopes Diet: low salt diet Activity on Discharge: As tolerated Stand Alone Forms: Patient Portal Discharge page, Work/School Release Care Plan Goals: See below Health Concerns: High blood pressure Alcohol dependence Elevated liver enzymes Plan of Treatment: You have been started on multiple new medications for diagnosis of heart failure and uncontrolled high blood pressure, please take as prescribed Recommend follow low-salt diet and limit fluid intake as discussed Call to schedule follow-up appointment with PCP to monitor blood pressure and repeat liver enzymes in the near future You will need to have sleep study to evaluate for sleep apnea Recommend to completely abstain from alcohol use, addiction medicine has started you on naltrexone, please take as prescribed Call to schedule follow-up appointment with Cardiology Assessment: See discharge summary
[2021-10-31] MEDS: Sacubitril/Valsartan 49/51 1 TAB TABLET PO (11:05)
[2021-10-31 11:22] VITALS: BP 107/60; PULSE 86; RESP 20; TEMP 36.6; O2SAT 94
--- NOTE | 2021-10-31 11:32 | PM.PNCARD ---
Subjective Subjective Date of Service: 10/31/21 Principal diagnosis: acute CHF, uncontrolled HTN Interval history: Patient says he is doing well. No shortness of breath. Leg edema is improved. Blood pressure remains elevated. LVEF is moderately reduced. Review of Systems Review of Systems Yes all other systems are reviewed and are negative Physical Exam Vital Signs: Last Vital Signs Temp 97.9 F 10/31/21 11:22 Pulse 86 10/31/21 11:22 Resp 20 10/31/21 11:22 BP 107/60 10/31/21 11:22 Pulse Ox 94 10/31/21 11:22 O2 Del Method 10/31/21 11:22 O2 Flow Rate 0 10/29/21 03:19 BMI result Body Mass Index 45.0 Const General: cooperative, comfortable, no acute distress, alert and awake Nutritional Appearance: obese Orientation/consciousness: patient oriented x3 Neck Neck: Yes trachea midline and Yes no JVD Chest Chest palpation & inspection: normal inspection of the chest Resp Effort & Inspection: normal respiratory effort Auscultation: clear to auscultation bilaterally Cardio Jugular venous distension: no JVD Palpation: abnormal PMI displaced PMI Rate: regular rate Rhythm: regular rhythm Heart sounds: S1 normal heart sound present, S2 normal heart sound present, no click, no gallops and no murmurs GI Inspection: Yes obesity Auscultation: normal bowel sounds Neuro General: patient oriented x3 and no focal motor deficits Objective Labs and Meds Result diagrams: 10/25/21 12:06 10/30/21 05:54 Progress Note: A&P Assessment and plan (1) Acute HFrEF (heart failure with reduced ejection fraction): Status: Acute Assessment and Plan: Acute heart failure with reduced ejection fraction but clinically doing well. Heart failure syndrome has resolved with good diuresis. Continue current diuresis as outpatient oral therapy. Discussed with management of heart failure in details. Daily weight monitoring and avoidance of salt loading was discussed. Additional diuretics as needed. Provide with heart failure education. Blood pressure remains elevated and switch losartan to Entresto 97/103 mg twice a day along with Coreg 25 mg b.i.d.. Continue Aldactone. Will set up for outpatient workup with sleep study as well as ischemic workup. Complete cessation of alcohol was discussed. Will follow up in the clinic in 2-3 weeks time. Time Spent With Patient Time: Total time spent is greater than 50% in coordination of care (as documented) at patient's floor/unit and/or counseling patient: Progress Note: Quality Stroke Does the patient have a stroke diagnosis?: No Procedures Date of Service Date of Service: 10/31/21
--- NOTE | 2021-10-31 11:32 | MHC.CM.PN ---
PT DISCHARGED HOME TODAY, NO SERVICES. PT ARRANGED TRANSPORT
== END 2021-10-31 11:00 | disposition home or self-care (01) | DRG 194 ==
LOC: HO.ED 17:07 → HO.EDOVER 18:00 → HO.IMC 10-27 08:52
PROVIDERS: Nurse Practitioner Family; Admitting Provider Family Medicine; Emergency Provider Emergency Medicine; Responsible Provider Physician Assistant Medical; Visit Provider Internal Medicine
DX: I11.0 Hypertensive heart disease with heart failure (principal); I42.6 Alcoholic cardiomyopathy; K70.9 Alcoholic liver disease, unspecified; Z68.43 Body mass index [BMI] 50.0-59.9, adult; K70.0 Alcoholic fatty liver; F10.239 Alcohol dependence with withdrawal, unspecified; E66.01 Morbid (severe) obesity due to excess calories; Z87.891 Personal history of nicotine dependence; I50.21 Acute systolic (congestive) heart failure; Z79.899 Other long term (current) drug therapy
CPT/HCPCS: 36415; 71045; 74176; 80048; 80076; 81001; 83036; 83735; 83880; 84484; 85025; 85610; 85730; 86704; 86706; 86709; 86803; 87340; 87635; 93005; 93306; 99285; J1650; J1940; Q9957

== ENCOUNTER → 2021-12-20 08:28 | Outpatient (REF) | payer BC, SELFPAY ==
--- NOTE | ~2021-12-20 | NM_ITS ---
Lexiscan Myocardial perfusion study Indication: Congestive heart failure, assess for coronary disease and ischemia Technique: The patient was brought in for a Lexiscan perfusion study on 12/20/2021 and was injected 0.4 mg of Lexiscan intravenously. Within a minute of this injection 35 mCi of sestamibi was given intravenously. Images were obtained using the SPECT gamma camera interlaced with the gating device. Images were obtained in supine position. Resting perfusion study was performed on 12/22/2021. Patient was administered 35 mCi of sestamibi intravenously at rest. Images were then obtained in supine position. Total DLP 186mGy-cm. Images were processed with the software and compared side to side in short axis, horizontal long axis and vertical long axis views. Findings: Raw acquisition reviewed. The stress perfusion study showed mildly diminished tracer uptake in the apical part of anterolateral wall. Doesn't completely resolves with CT attenuation correction. The gated study shows normal LV systolic function with calculated LVEF of 53%. LV cavity is normal in size. The gated study shows normal wall thickening and contraction of segments. Resting study shows no significant perfusion abnormality. Gating at rest reveals normal wall motion with ejection fraction at 55%. The findings are consistent with mild reversible apical inferolateral defect likely artifactual. NM/NM cardiolite stress test Impression: 1. Myocardial perfusion imaging study shows no definitive evidence of any ischemia or infarction. Likely normal myocardial perfusion. 2. Gated LVEF is 53% during stress and 55% during rest. 3. Transient ischemic dilatation not present. EKG component of the test reported separately.
--- NOTE | 2021-12-20 08:31 | CA_ITS ---
Acquisition Time: 2021-12-20 08:48:28 Total Exercise Time: 00:02:00 Test Indications: CHF Medications: SEE CHART Protocol: LEXISCAN Max HR: 105 BPM 60% of Pred: 174 BPM Max BP: 164/092 mmHG Max Work Load: 1.6 METS Pharmacological stress test with Lexiscan injection, while walking slow on treadmill, without anginal symptoms, without arrythmia, with normotensive response to injection, with nondiagnostic EKG for ischemia. In recovery he reported some mild residual sob and lightheadedness that was treated with Aminophylline 75mg IVP to reverse Lexiscan with resolution of symptoms. Nuclear images pending. Test reviewed with Dr Bustamante. Referred By: Rick Vela Overread By: WAYNE RUDOLPH
== END ==
LOC: HO.CARD 08:28
PROVIDERS: Visit Provider Internal Medicine Cardiovascular Disease
DX: I42.6 Alcoholic cardiomyopathy (principal); I11.0 Hypertensive heart disease with heart failure; I50.21 Acute systolic (congestive) heart failure
CPT/HCPCS: 78452; 93017; A9500; J0280; J2785

== ENCOUNTER → 2021-12-26 14:04 | Outpatient (REF) | payer BC, SELFPAY | LOC: HO.SL 14:04 | PROVIDERS: Visit Provider Internal Medicine Cardiovascular Disease | DX: G47.33 Obstructive sleep apnea (adult) (pediatric) (principal); R06.83 Snoring; I10 Essential (primary) hypertension; I42.6 Alcoholic cardiomyopathy; I50.21 Acute systolic (congestive) heart failure | CPT/HCPCS: 95806 ==

== ENCOUNTER → 2022-02-08 12:55 | Outpatient (REF) | payer BC, SELFPAY ==
--- NOTE | 2022-02-08 12:57 | CA_ITS ---
Transthoracic Echocardiogram Patient (Last, First, Middle): Antoni Salguero I Gender: Male Date of : 1975 Age: 46 Procedure Date: 02/08/2022 Procedure Type: Transthoracic Echocardiogram Location: OP Height: 162.56 cm Weight: 117.79 kg BSA: 2.19 m2 Heart Rate: 101 bpm BP: 134 / 80 mmHg General Clerk: Referring MD: Clinton Fernandez MD Print Color Operator: Rick Vela MD Symptoms: I50.22 - Chronic systolic (congestive) heart failure Study Quality: Adequate w Definity ECG Rhythm: Sinus Conclusions: - 1. Low normal LV systolic function with LVEF of 50-55% with mild LVH with impaired relaxation filling pattern 2. Normal cardiac valvular Doppler next 3. Mildly dilated left atrium 4. Normal RV systolic pressure 5. No gross pericardial effusion Findings Procedure Information Contrast agent, definity, is being given per protocol without apparent complications. Left Ventricle Normal left ventricular cavity size. There is mildly increased left ventricular wall thickness. The left ventricular systolic function is low normal. The visually estimated ejection fraction is between 50-55%. There is no evidence of regional wall motion abnormalities. Spectral Doppler is indicative of an impaired relaxation filling pattern. E/E prime ratio is between 8 and 15 consistent with indeterminate filling pressures. Right Ventricle Normal right ventricular cavity size and systolic function. Atria The left atrium is mildly dilated. There is lipomatous hypertrophy of the interatrial septum. There is no evidence of interatrial shunt. The right atrium is normal in size. Aortic Valve The aortic valve structure and function is likely normal. There is no aortic valve stenosis. There is no aortic valve regurgitation. Mitral Valve Likely normal mitral valve structure and function. There is trace mitral valve regurgitation. There is no mitral valve stenosis. Pulmonic Valve The pulmonic valve was not well visualized. Tricuspid Valve Likely normal tricuspid valve structure and function. There is trace tricuspid valve regurgitation. The right ventricular systolic pressure is normal. The right ventricular systolic pressure is 20 mmHg. Normal right atrial pressure. There is no evidence of pulmonary hypertension. Great Vessels All visible segments of the aorta are normal in size. The pulmonary artery was not well visualized. Venous The inferior vena cava is normal in size and collapses greater than 50% with inspiration. Pericardium/Pleural There is no evidence of pericardial effusion. Prior Study Comparison Changes noted compared to prior study. LV systolic function is improved. RV systolic pressure is normal Measurements 2D Linear Measurements IVSd: 1.27 0.6-0.9/0.6-1.0 cm LVIDd: 5.40 3.9-5.3/4.2-5.9 cm LVIDd Index: 2.47 2.4-3.2/2.2-3.1 cm/m2 LVIDs: 3.37 2.0-3.6 cm LVPWd: 1.23 0.7-1.1 cm Ao Root: 3.90 2.1-3.5 cm LA Diam: 4.40 2.7-3.8/3.0-4.0 cm LAIDs Index: 2.01 1.5-2.3 cm/m2 LV Mass: 495.43 67-162/88-224 g LV Mass Index: 226.22 43-95/49-115 g/m2 LVOT Diam: 2.40 3.0+(-)1.3 cm 2D Systolic Function EF 4C: 51.60 >55% EF 2C: 53.20 >55% EF BiP: 54.40 >55% Mitral Valve MV Pk E: 0.48 MV PK A: 1.17 MV Decel Time: 165.00 E/A: 0.40 E'Lateral: 3.81 E'Medial: 2.61 E/E' Med: 18.40 E/E' Lat: 12.60 PHT: 48.00 MVA PHT: 4.58 Decel Knott: 2.91 Aortic Valve AoV Pk Víctor: 1.52 AoV Mn Víctor: 1.02 AoV VTI: 0.27 AoV Pk Grad: 9.00 Aov Mn Grad: 5.00 BEAU Cont.VTI: 3.71 LVOT LVOT Pk Víctor: 1.07 LVOT Mn Víctor: 0.78 LVOT VTI: 0.22 LVOT Pk Grad: 5.00 LVOT Mn Grad: 3.00 LVOT Diam: 2.40 LVOT Area: 4.52 Diastolic Function MV Pk E: 0.48 MV Pk A: 1.17 E/A: 0.40 E'Medial: 2.61 E/E' Med: 18.40 E' Laterial: 3.81 E/E' Lat: 12.60 Right Ventricle TAPSE (mm): 28.00 TVS' Víctor: 12.00 Tricuspid Valve TR Pk Víctor: 2.08 TR Pk Grad: 17.00 RA Press: 3.00 RVSP: 20.00 Great Vessels Aorta Ao Root-2D: 3.90 2.0-3.7 cm Ao Asc: 3.50 2.1-3.4 cm Pulmonary Valve PV Pk Víctor: 1.06 Peak PV Grad: 4.00 Updated in Other Vendor System with Status of Final Rick Vela MD electronically signed on 02/08/2022 4:37:49 PM with status of Final
== END ==
LOC: HO.CARD 12:55
PROVIDERS: Visit Provider Internal Medicine Cardiovascular Disease
DX: I50.22 Chronic systolic (congestive) heart failure (principal)
CPT/HCPCS: 93306; Q9957

== ENCOUNTER → 2022-03-06 15:43 | Outpatient (BNVA) | payer BC, SELFPAY | PROVIDERS: Visit Provider Internal Medicine Cardiovascular Disease | DX: I42.9 Cardiomyopathy, unspecified (principal); I10 Essential (primary) hypertension | CPT/HCPCS: 93005 ==

== ENCOUNTER → 2022-05-24 10:22 | Outpatient (BNVA) | payer BC, SELFPAY | PROVIDERS: Visit Provider Internal Medicine Cardiovascular Disease | DX: Z13.89 Encounter for screening for other disorder (principal) ==